=== PATIENT | male | born 1940 | race Caucasian/White ===

== ENCOUNTER 2017-03-11 14:01 | Inpatient (IN) | payer MEDICARE, BC ==
[~2017-03-11] VITALS: Ht 177.8 cm; Wt 87.5 kg
[2017-03-11] VITALS (10 sets, daily range): BP systolic 92–140; BP diastolic 56–78; PULSE 73–104; RESP 14–25; TEMP 97.2–98.2; O2SAT 93–100
[~2017-03-11 14:01] MED LIST: ASPI325T PO; IOHEXOL 350 MG/ML 100 ML BTL (for Cath Lab) OTHER ONE; LISI10TA PO; LORTA5 PO; MUCI600T PO; OCUVTAB PO; TAB-TAB PO; ULTR50TA PO; VYTO10TA35 PO
[2017-03-11] MEDS ORDERED: NITROGLYCERIN 0.4 MG SL 25 TABS/BTL SL STA (14:12)
[2017-03-11] MEDS ORDERED: HEPARIN SODIUM - IV 10,000 UNITS/10 ML VIAL IV STA (14:12)
--- NOTE | 2017-03-11 14:24 | PD ---
HPI Chief Complaint: STEMI Alert Time Seen by Provider: 14:12 Travel History International Travel<30 days: No Contact w/Intl Traveler<30days: No Traveled to known affect area: No History of Present Illness HPI 76yo M with PMH of CAD s/p cardiac cath in 1995, HTN presents to the ED with STEMI alert with chest pain since 9am today. States it feels like someone is sitting on it, nonradiating, left sided. Associated with diaphoresis, sob, nausea, NBNB vomiting. Denies any focal weakness or numbness, abdominal pain. Pt was given by sublingual nitro x2, aspirin x2. Pt's territory account representative is Dr. Lynn. [facility] Past Medical History Arthritis: Yes Anxiety: No Depression: No Cancer: Yes Cardiovascular Problems: Yes High Cholesterol: Yes Chest Pain: Yes Diabetes: Yes Endocrine: Yes Genitourinary: No Hepatitis: No Hiatal Hernia: No Immune Disorder: No Musculoskeletal: Yes Neurologic: No Psychiatric: No Reproductive: No Respiratory: Yes (L lower lobectomy) Thyroid Disease: No Past Surgical History AICD: No Cardiac Surgery: Yes (angioplasty 1995) Endocrine Surgery: Yes (tonsillectomy/adenoidectomy) Joint Replacement: No Oral Surgery: Yes (SEPTOPLASTY) Pacemaker: No Thoracic Surgery: Yes (RIGHT BREAST MASTECTOMY) Social History Tobacco Use: No Substance Use: No Allergies-Medications (Allergen,Severity, Reaction): Coded Allergies: No Known Allergies (Unverified , 03/11/17) Reported Meds & Prescriptions Reported Meds & Active Scripts Active Reported Aspirin 81 Mg Chew 324 Mg CHEW DAILY Hydrochlorothiazide 12.5 Mg Cap 12.5 Mg PO BID Amlodipine (Amlodipine Besylate) 2.5 Mg Tab 2.5 Mg PO DAILY Prilosec (Omeprazole Magnesium) 2.5 Mg Pow Simvastatin 40 Mg Tab 40 Mg PO HS Zetia (Ezetimibe) 10 Mg Tab 10 Mg PO DAILY Review of Systems Except as stated in HPI: all other systems reviewed are Neg Physical Exam Narrative GENERAL: 76yo M in distress. SKIN: Diaphoretic. HEAD: Atraumatic. Normocephalic. EYES: Pupils equal and round. No scleral icterus. No injection or drainage. ENT: No nasal bleeding or discharge. Mucous membranes pink and moist. NECK: Trachea midline. No JVD. CARDIOVASCULAR: Regular rate and rhythm. No murmur appreciated. RESPIRATORY: No accessory muscle use. Clear to auscultation. Breath sounds equal bilaterally. GASTROINTESTINAL: Abdomen soft, non-tender, nondistended. MUSCULOSKELETAL: No obvious deformities. No clubbing. No cyanosis. No edema. NEUROLOGICAL: Awake and alert. No obvious cranial nerve deficits. Motor grossly within normal limits. Normal speech. PSYCHIATRIC: Appropriate mood and affect; insight and judgment normal. Data Data Last Documented VS Vital Signs Date Time Temp Pulse Resp B/P Pulse Ox O2 Delivery O2 Flow Rate FiO2 03/11/17 16:15 73 03/11/17 16:07 97.2 14 92/56 94 03/11/17 14:38 Nasal Cannula 2 Orders Troponin I (03/11/17 14:12) Ckmb (Isoenzyme) Profile (03/11/17 14:12) Complete Blood Count With Diff (03/11/17 14:12) I-Stat Profile (03/11/17 14:12) I-Stat Creatinine (03/11/17 14:12) Calcium (03/11/17 14:12) Magnesium (Mg) (03/11/17 14:12) Prothrombin Time / Inr (Pt) (03/11/17 14:12) Act Partial Throm Time (Ptt) (03/11/17 14:12) Chest, Single Ap (03/11/17 14:12) Nitroglycerin Sl (Nitrostat Sl) (03/11/17 14:12) Heparin Inj (Heparin Inj) (03/11/17 14:12) Morphine Inj (Morphine Inj) (03/11/17 14:30) Potassium Chlor 20 Meq Premix (Kcl 20 Me (03/11/17 14:30) Heparin-Ns/Pf Inj (Heparin-Ns/Pf Inj) (03/11/17 14:39) Cardiac Catheterization (03/11/17 ) Bivalirudin Inj (Angiomax Inj) (03/11/17 15:03) Sodium Chlor 0.9% 250 Ml Inj (Ns 250 Ml (03/11/17 15:04) CKMB (03/11/17 14:04) CKMB% (03/11/17 14:04) Dopamine Inj Premix (Dopamine Inj Premix (03/11/17 15:12) Fentanyl Inj (Fentanyl Inj) (03/11/17 15:40) Ticagrelor (Brilinta) (03/11/17 15:43) Ondansetron Inj (Zofran Inj) (03/11/17 15:50) Activity Bed Rest (03/11/17 16:17) Diet Heart Healthy (03/11/17 Dinner) Vital Signs (Adult) SRUTHI.Q1H (03/11/17 16:17) Electrocardiogram (03/12/17 06:00) Complete Blood Count With Diff (03/12/17 04:00) Basic Metabolic Panel (Bmp) (03/12/17 04:00) Consult Hospitalist (03/11/17 ) Sodium Chlor 0.9% 1000 Ml Inj (Ns 1000 M (03/11/17 16:17) Acetaminophen (Tylenol) (03/11/17 16:30) Aspirin Chew (Aspirin Chew) (03/12/17 09:00) Ticagrelor (Brilinta) (03/11/17 16:30) Ticagrelor (Brilinta) (03/12/17 09:00) Sodium Chloride 0.9... W/Bivalirudin Inj (03/11/17 16:17) Lipid Profile (03/12/17 04:00) Window Glazier / Telemetry SRUTHI.Q8H (03/11/17 16:17) Atropine Inj (Atropine Inj) (03/11/17 16:30) Ondansetron Inj (Zofran Inj) (03/11/17 16:30) Metoprolol Tartrate (Lopressor) (03/11/17 21:00) Atorvastatin (Lipitor) (03/11/17 21:00) Window Glazier / Telemetry SRUTHI.Q8H (03/11/17 16:17) Labs Laboratory Tests Test 03/11/17 14:04 White Blood Count 10.1 TH/MM3 Red Blood Count 5.38 MIL/MM3 Hemoglobin 15.3 GM/DL Bedside Hemoglobin 14.6 G/DL Hematocrit 44.3 % Bedside Hematocrit 43.0 % Mean Corpuscular Volume 82.4 FL Mean Corpuscular Hemoglobin 28.4 PG Mean Corpuscular Hemoglobin 34.5 % Concent Red Cell Distribution Width 14.0 % Platelet Count 223 TH/MM3 Mean Platelet Volume 9.0 FL Neutrophils (%) (Auto) 71.1 % Lymphocytes (%) (Auto) 18.2 % Monocytes (%) (Auto) 9.3 % Eosinophils (%) (Auto) 0.7 % Basophils (%) (Auto) 0.7 % Neutrophils # (Auto) 7.2 TH/MM3 Lymphocytes # (Auto) 1.8 TH/MM3 Monocytes # (Auto) 0.9 TH/MM3 Eosinophils # (Auto) 0.1 TH/MM3 Basophils # (Auto) 0.1 TH/MM3 CBC Comment DIFF FINAL Differential Comment Prothrombin Time 10.5 SEC Prothromb Time International 1.0 RATIO Ratio Activated Partial 23.2 SEC Thromboplast Time Bedside Sodium 143 MMOL/L Bedside Potassium 3.2 MMOL/L Bedside Chloride 110 MMOL/L Bedside Blood Urea Nitrogen 24 MG/DL Bedside Creatinine 1.2 MG/DL Bedside Glucose 135 MG/DL Calcium Level 9.2 MG/DL Magnesium Level 1.9 MG/DL Total Creatine Kinase 128 U/L Creatine Kinase MB 3.2 NG/ML Troponin I 0.06 NG/ML MDM Medical Decision Making Medical Screen Exam Complete: Yes Emergency Medical Condition: Yes Interpretation(s) EKmm ST segment elevation in V2, V3. 2mm ST elevation in V4. ST depression in II, III, aVF. Differential Diagnosis STEMI Narrative Course 76yo M with typical chest pain here as STEMI alert. Pt with pressure like chest pain and diaphoresis. EKG showed marked anterior ST elevated with inferior reciprocal changes. I discussed with Dr. Heller who is account contact associate for STEMI and he states he is on his way and cardiac clinical lab assistant called to come in emergently. Pt given heparin 5000 IV. Pt given another sublingual nitro but states chest pain is getting worse. Morphine 2mg IV ordered. I-stat showed K: 3.2, 20mEq KCl IV ordered. Creatinine 1.2. H/H 14.6/43. I accompanied pt to the clinical lab assistant on electrical line worker and gave physician to physician sign out to Dr. Heller in the clinical lab assistant. Critical Care Narrative Aggregate critical care time was 50 minutes. Time to perform other separately billable procedures was not included in the critical care time. My time did not include minutes spent treating any other patients simultaneously or on activities that did not directly contribute to the patient's treatment. The services I provided to this patient were to treat and/or prevent clinically significant deterioration that could result in: cardiovascular collapse or . I provided critical care services requiring my management, as noted below: Chart data review, documentation time, medication orders and management, vital sign assessments/reviewing monitor data, ordering and reviewing lab tests, ordering and interpreting/reviewing x-rays and diagnostic studies, care of the patient and discussion of the patient with the admitting physicians. Diagnosis Primary Impression: STEMI (ST elevation myocardial infarction) Qualified Code: I21.3 - ST elevation myocardial infarction (STEMI), unspecified artery Admitting Information Admitting Physician Requests: Admit Bee Thomas DO Mar 11, 2017 14:24
--- NOTE | 2017-03-11 14:27 | RADRPT ---
EXAM DATE/TIME: 03/11/2017 14:06 [place] COMPARISON: CHEST SINGLE AP, November 02, 2013, 13:31. INDICATIONS : Stemi alert MEDICAL HISTORY : None. SURGICAL HISTORY : None. ENCOUNTER: Initial ACUITY: 1 day PAIN SCORE: 10/10 LOCATION: Bilateral chest FINDINGS: The heart size is normal. There is linear scarring or atelectasis at the right base. The lungs are ot herwise clear. No effusion is seen. CONCLUSION: Mild linear scarring or atelectasis at the right base. Aris Parks MD on March 11, 2017 at 14:24 Board Certified Radiologist. This report was verified electronically.
[2017-03-11] MEDS ORDERED: HYDR12.57 PO (14:28)
[2017-03-11] MEDS ORDERED: PRIL2.5P (14:28)
[2017-03-11] MEDS ORDERED: ZETI10TA5 PO (14:28)
[2017-03-11] MEDS ORDERED: ASPI81CH CHEW (14:28)
[2017-03-11] MEDS ORDERED: AMLO2.5T PO (14:28)
[2017-03-11] MEDS ORDERED: SIMV40TA PO (14:28)
[2017-03-11] MEDS ORDERED: MORPHINE SULFATE 4 MG/ML INJ IV PUSH ONE (14:30)
[2017-03-11] MEDS ORDERED: POTASSIUM CHLOR 20 MEQ PREMIX 100 ML IV ONE (14:30)
[2017-03-11 14:39] LABS: AUTOMATED NEUTROPHIL # 7.2 TH/MM3 (1.8-7.7); BASOPHIL # 0.1 TH/MM3 (0-0.2); BASOPHIL % 0.7 % (0.0-2.0); EOSINOPHIL # 0.1 TH/MM3 (0-0.4); EOSINOPHIL % 0.7 % (0.0-4.0); HEMATOCRIT 44.3 % (39.0-51.0); HEMO FLAGS DIFF FINAL; I-STAT POTASSIUM 3.2 MMOL/L (3.5-4.9); I-STAT SODIUM 143 MMOL/L (138-146); LYMPH % 18.2 % (9.0-44.0); LYMPHOCYTE # 1.8 TH/MM3 (1.0-4.8); MEAN CELL VOLUME 82.4 FL (80.0-100.0); MEAN CORPUSCULAR HEMOGLOBIN 28.4 PG (27.0-34.0); MEAN CORPUSCULAR HGB CONC 34.5 % (32.0-36.0); MONO % 9.3 % (0.0-8.0); NEUT % 71.1 % (16.0-70.0); PLATELET COUNT 223 TH/MM3 (150-450); RED BLOOD COUNT 5.38 MIL/MM3 (4.50-5.90); WHITE BLOOD COUNT 10.1 TH/MM3 (4.0-11.0)
[2017-03-11] MEDS ORDERED: HEPARIN-NS/PF INJ 500 ML ONE (14:39)
[2017-03-11 14:48] LABS: APTT (PATIENT) 23.2 SEC (24.3-30.1); PROTHROMBIN TIME - PATIENT 10.5 SEC (9.8-11.6)
[2017-03-11] MEDS ORDERED: BIVALIRUDIN 250 MG VIAL ONE (15:03)
[2017-03-11] MEDS ORDERED: SODIUM CHLOR 0.9% 250 ML INJ 250 ML ONE (15:04)
[2017-03-11 15:09] LABS: MAGNESIUM 1.9 MG/DL (1.5-2.5)
[2017-03-11 15:12] LABS: CREATINE KINASE 128 U/L (39-308)
[2017-03-11] MEDS ORDERED: DOPamine INJ PREMIX 500 ML ONE (15:12)
[2017-03-11 15:24] LABS: CKMB 3.2 NG/ML (0.5-3.6)
[2017-03-11] MEDS ORDERED: TICAGRELOR 90 MG TAB PO ONE ×2 (15:43→16:30)
[2017-03-11] MEDS ORDERED: ONDANSETRON HCL 4 MG/2 ML VIAL ONE (15:50)
--- NOTE | 2017-03-11 16:03 | CATHPROC ---
[employer] HIS Report Study Information Study Number Admission Scheduled Start Study Start [id number] Mar 11 2017 2:01PM 03/11/2017 Mar 11 2017 2:42PM [facility] Cardiac Catheterization Admit Source Facility Department Emergency department [facility] - Script Coordinator Physician and Clinical Staff Initial Cuco Rodriguez Finishing Wire Sawyer Christopher Nolen,ASH Finishing Wire Sawyer Helga Lorenzana RN Other cathlab, cathlab Recorder Estrada Underwood RCIS(BS) Scrub Evangelist Abebe RT(R) Procedures Performed Procedure Location (Site) Vessel Name Angiogram LV LV Ventricle Coronary Angiograms RCA Right Coronary Drug Eluting Inflatio LAD Prox Left Coronary PTCA LAD Prox Left Coronary Wire insertion Fem Art (right) Femoral Art Equipment Time Rn Clinical Review Description Size Mfg Part Number Used/Scraped COPILOT VALVE, BLEEDBACK [id number] 14:44 [employer] Used CONTROL *[id number] PERCLOSE, PRO GLIDE CLOSER 15:34 [employer] FR 6 15744 *[id number] Used DEVICE TRANSDUCER, TRUWAVE [id number] 14:44 ROMO [employer] * Used W/STOCKCOCK *[id number] INTRODUCER SET, [id number] 15:03 [employer]. FR 5 Used MICROPUNCTURE *[id number] [id number] *[id number] PIGTAIL ANG. 145 INFINITI [id number] CATHETER *[id number] 14:44 MEDLINE IND[employer]RIES PACK, CCL CUSTOM * Used *[id number] 14:44 MEDLINE PACER PEN, SKIN DUAL W/ RULER * Used *[id number] 15:07 MEDTRONIC BALLOON, 2.5 X 12MM EUPHORA 12MM Used *[id number] BALLOON, 3.25 X 12MM NC [id number] 15:25 MEDTRONIC 12MM Used EUPHORA *[id number] BALLOON, 3.5 X 12MM NC [id number] 15:29 MEDTRONIC 12MM Used EUPHORA *[id number] STENT, 3.0 18 RESOLUTE [id number] 15:15 MEDTRONIC 3.0 18 Used INTEGRITY RX *[id number] 14:49 MEDTRONIC/AVE EBU 3.5 Z2 GUIDE CATHETER FR 6 Used *[id number] 14:44 [employer] 30 MANUEL INDEFLATOR Used *[id number] 14:44 [employer] MEDICAL SHEATH, FR6.5 PRELUDE 11CM FR 6.5 038ACT Used *[id number] 14:44 [employer] MEDICAL WIRE, 3MMJ .035 180CM 180CM Used *[id number] 14:44 NAMIC MANIFOLD, 4 PORT * Used *[id number] 14:44 [employer]COMED OMNIPAQUE, 350 MG, 100ML 100ML [id number] Used 15:39 NYCOMED OMNIPAQUE, 350 MG, 50ML 50ML [id number] Used [id number] 14:44 REA MEDICAL BLANKET,WARM AIR CCL * Used *[id number] WIRE, RUNTHROUGH NS FLOPPY 25-1011 15:06 [employer] MEDICAL 180CM Used .014 180CM *[id number] Equipment Model, Serial, Lot Number and Expiration Data Description Model Number Serial Number Lot Number Expiration Date STENT, 3.0 18 RESOLUTE [id number] 12-08-2018 INTEGRITY RX History: Allergies Allergy Reaction No Known Allergies History: Risk Factors Family History of Hypertension Dyslipidemia Previous TX Previous Heart Failure Premature CAD Yes Yes No No No Prior Valve Prior PCI Prior PCIDate Prior CABG Surgery No Yes 09/18/1998 No Cerebrovascular Peripheral Artery Chronic Lung On Dialysis Diabetes Diabetes Therapy Disease Disease Disease No No No No Yes Oral History: Symptoms/Diagnosis Selection Items Chest pain History: Stress Tests Stress or Imaging Studies Performed No History: Other Disease Selection Items CAD HTN History: TX/CV Data Previous Cath Date 09/18/1998 History: Other Current Smoker Method Quit Packs a Day Years Used Pack Years No Cigarettes 35 Years Ago 1 25 25 Labs Hgb (g/dl) Hct (%) 11.60-17.00 35.00-51.00 14.6 43 Glucose (mg/dl) BUN (mg/dl) Creatinine (mg/dl) BUN:Creatinine (1:x) 74.00-106.00 7.00-18.00 0.50-1.30 10.00-20.00 135 24 1.2 20 Na (meq/l) K (meq/l) Cl (meq/l) 136.00-145.00 3.50-5.10 98.00-107.00 143 3.2 110 CPK-MB (ng/ML) 0.50-3.60 Not Drawn Medication Medication Total Dose (Bolus/Oral) Medication Total Dosage/Unit 1% XYLOCAINE 20 mL ANGIOMAX BOLUS 14 mL BRILLINTA 180 mg FENTANYL 50 mcg ZOFRAN 4 mg Medications (Bolus/Oral) Medication Time Given Dosage/Unit Administered By Reason 1% XYLOCAINE 03/11/2017 2:57:40 PM 20 mL Heller-Taylor, Cuco 20 mL 1% XYLOCAINE given in lab by Gretchen Cuco in Right Groin via Subcutaneous. ANGIOMAX BOLUS 03/11/2017 3:05:20 PM 14 mL Christopher Nolen 14 mL ANGIOMAX BOLUS given in lab by Christopher Nolen RN in Left Antecubital via Peripheral IV. FENTANYL 03/11/2017 3:40:40 PM 50 mcg Christopher Nolen 50 mcg FENTANYL given in lab by Christopher Nolen RN in Left Antecubital via Peripheral IV. BRILLINTA 03/11/2017 3:47:36 PM 180 mg Salomón, Helga 180 mg BRILLINTA given in lab by Helga Lorenzana RN in Per mouth via Oral. ZOFRAN 03/11/2017 3:52:02 PM 4 mg Salomón, Helga 4 mg ZOFRAN given in lab by Helga Lorenzana RN in Left Antecubital via Central IV. Medication (Drip) Medication Time Given Dosage/Unit Concentration/Unit Diluent (ml) Solution ANGIOMAX DRIP 03/11/2017 3:07:52 PM 1.75 mg/kg/hr 250 mg 50 NaCl .9 1.75 mg/kg/hr ANGIOMAX DRIP given in lab by Christopher Nolen RN in Left Antecubital via Peripheral IV. Pump/Drip Flow = 29.4 ml/hr using NaCl .9 with a concentration of 250 mg in 50 ml. POTASSIUM DRIP 03/11/2017 2:56:26 PM 10 meq/hr 10 meq 100 D5W .9 NaCl Patient arrived on 10 meq/hr POTASSIUM DRIP in Left Antecubital via Peripheral IV. Pump/Drip Flow = 1 00 ml/hr using D5W .9 NaCl with a concentration of 10 meq in 100 ml. Initial Case Assessment Cardiovascular HR Rhythm NIBP Chest Pain 86 stemi 112/64 9 Edema Present Skin color Skin None Normal Warm Dry Circulatory - Right Pulses Dorsalis Pedis Femoral 3 2 Scale (0,1,2,3,4,d) Circulatory - Left Pulses Dorsalis Pedis Femoral 3 2 Scale (0,1,2,3,4,d) Neurological State Oriented to time-place- Alert Moves all extremities person Respiration - General Respiration Rate SpO2 (%) (B/min) 15 100 Chronological Log Time Study Chronological Log 14:40:18 Emergency Room notified that Script Coordinator is ready. 14:45:05 Patient arrived via Bed. 14:45:10 Patient Name, D.O.B, / Armband Verified By R.N. 14:55:30 Bilateral groins prepped with 2% chlorhexidine, and with a 3 min. waiting time. 14:56:06 Consent signed by the physician and the patient and verified by the Script Coordinator staff. 14:56:08 Pre-op and post- op instructions given; patient acknowledges understanding of instructions. 14:56:09 Verbal Stimulation=2 Physical Stimulation=2 Airway=2 Respiration=1 TOTAL=8. (0=absent, 1=li mited, 2=present) 14:56:14 Patient has been NPO for More than 6Hrs. 14:56:14 Skin Breakdown- none per patient 14:56:21 Patient Warmer Placed on the Table. 14:56:22 Jessica Prominences Protected Vitals capture started with the following parameters, Patient=Adult, Interval=5 min, Initial Pr jqtdxh=083 mmHg, 14:56:23 Deflation Rate=5 mmHg 14:56:25 A # 20 IV was noted in the Hand (left). Grade = 0 14:56:26 A # 20 IV was noted in the Antecubital (left). Grade = 0 Patient arrived on 10 meq/hr POTASSIUM DRIP in Left Antecubital via Peripheral IV. Pump/Drip Fl ow = 100 ml/hr using 14:56:26 D5W .9 NaCl with a concentration of 10 meq in 100 ml. 14:56:27 History and physical on the chart or being dictated. 14:56:59 HR=91 bpm, VSOC=422/64 mmhg, SpO2=99.0 %, Resp=15 B/min, Pain=0, Aimee=10, Fields=2 14:57:40 20 mL 1% XYLOCAINE given in lab by Cuco Godinez in Right Groin via Subcutaneous. 14:59:04 Reference ECG taken Assessment: Initial Case, HR=86 BPM, Rhythm=stemi, UMIG=882/64 mmhg, Chest Pain=9, Edema=None, Color=Normal, Skin = Warm, Dry Right Pulses: Surya Ped=3, Femoral=2 14:59:06 Left Pulses: Surya Ped=3, Femoral=2 Neurological: State=Alert, Ox3, PAGE Respiration: Resp=15 B/min, RfU5=843 % 14:59:50 Pressure channel 1 zeroed. 15:01:58 HR=77 bpm, TTEF=246/67 mmhg, DaW8=437.0 %, Resp=16 B/min, Pain=0, Aimee=10, Fields=2 15:02:17 Access site was Right Femoral Artery. 15:02:23 A INTRODUCER SET, MICROPUNCTURE FR 5 was advanced into the Fem Art (right) using the Percut aneous technique. A SHEATH, FR6.5 PRELUDE 11CM FR 6.5 was exchanged in the Fem Art (right). This was necessary in order to 15:02:40 accomodate a larger catheter. A JR 4.0 INFINITI CATHETER FR 6 was advanced over a wire. OMNIPAQUE, 350 MG, 100ML 100ML was us ed for 15:03:34 injections. Recorded Pressure: Ao, HR=77, Condition=Condition 1 15:03:57 (Aorta) Ao 106/58/80 15:04:37 The RCA was injected and visualized at various angles. OMNIPAQUE, 350 MG, 100ML 100ML used . 15:05:02 Catheter was removed A EBU 3.5 Z2 GUIDE CATHETER FR 6 was advanced over a wire. OMNIPAQUE, 350 MG, 100ML 100ML was u sed for 15:05:04 injections. 15:05:20 14 mL ANGIOMAX BOLUS given in lab by Christopher Nolen RN in Left Antecubital via Peripheral I V. 15:06:59 HR=72 bpm, DLIC=010/65 mmhg, KiX5=807.0 %, Resp=19 B/min, Pain=9, Aimee=10, Fields=2 15:07:00 HR=72 bpm, YATU=079/65 mmhg, GzK5=110.0 %, Resp=19 B/min, Pain=9, Aimee=10, Fields=2 15:07:02 A WIRE, RUNTHROUGH NS FLOPPY .014 180CM 180CM was inserted via Fem Art (right). 1.75 mg/kg/hr ANGIOMAX DRIP given in lab by Christopher Nolen RN in Left Antecubital via Periphera l IV. Pump/Drip Flow 15:07:52 = 29.4 ml/hr using NaCl .9 with a concentration of 250 mg in 50 ml. 15:09:48 Interventional wire has crossed the lesion A BALLOON, 2.5 X 12MM EUPHORA 12MM was inserted over WIRE, RUNTHROUGH NS FLOPPY .014 180CM 180C M via 15:09:54 the LAD Prox. A BALLOON, 2.5 X 12MM EUPHORA 12MM over a WIRE, RUNTHROUGH NS FLOPPY .014 180CM 180CM in the LA D 15:10:48 Prox was inflated using a 30 MANUEL INDEFLATOR at 8 manuel for 7 sec. A BALLOON, 2.5 X 12MM EUPHORA 12MM over a WIRE, RUNTHROUGH NS FLOPPY .014 180CM 180CM in the LA D 15:11:27 Prox was inflated using a 30 MANUEL INDEFLATOR at 8 manuel for 7 sec. 15:11:39 Balloon Removed. 15:11:58 HR=71 bpm, NIBP=95/57 mmhg, UzC5=358.0 %, Resp=15 B/min, Pain=9, Aimee=10, Fields=2 A STENT, 3.0 18 RESOLUTE INTEGRITY RX 3.0 18 was advanced through a EBU 3.5 Z2 GUIDE CATHETER F R 6 over a 15:13:37 WIRE, RUNTHROUGH NS FLOPPY .014 180CM 180CM. A STENT, 3.0 18 RESOLUTE INTEGRITY RX 3.0 18 was deployed using a 30 MANUEL INDEFLATOR at 14 atmos pheres for 15:16:49 14 seconds in the LAD Prox. 15:16:57 HR=78 bpm, LHBS=884/59 mmhg, EbR4=278.0 %, Resp=14 B/min, Pain=5, Aimee=10, Fields=2 15:19:20 Delivery device removed Vitals capture started with the following parameters, Patient=Adult, Interval=5 min, Initial Pr vceyhf=654 mmHg, 15:19:26 Deflation Rate=5 mmHg 15:19:59 HR=77 bpm, NIBP=91/61 mmhg, KhR5=274.0 %, Resp=19 B/min, Pain=5, Aimee=10, Fields=2 Vitals capture started with the following parameters, Patient=Adult, Interval=5 min, Initial Pr zyvbos=078 mmHg, 15:22:54 Deflation Rate=5 mmHg Recorded Pressure: Ao, HR=73, Condition=Condition 1 15:23:15 (Aorta) Ao 82/54/68 15:23:24 HR=74 bpm, NIBP=90/60 mmhg, XzW2=627.0 %, Resp=20 B/min, Pain=0, Aimee=10, Fields=2 A BALLOON, 3.25 X 12MM NC EUPHORA 12MM was inserted over WIRE, RUNTHROUGH NS FLOPPY .014 180CM 15:25:52 180CM via the LAD Prox. A BALLOON, 3.25 X 12MM NC EUPHORA 12MM over a WIRE, RUNTHROUGH NS FLOPPY .014 180CM 180CM in th e LAD 15:26:17 Prox was inflated using a 30 MANUEL INDEFLATOR at 20 manuel for 20 sec. 15:28:24 Balloon Removed. 15:28:25 HR=72 bpm, NIBP=97/58 mmhg, JqN0=683.0 %, Resp=15 B/min, Pain=1, Aimee=10, Fields=2 A BALLOON, 3.5 X 12MM NC EUPHORA 12MM was inserted over WIRE, RUNTHROUGH NS FLOPPY .014 180CM 1 80CM 15:29:44 via the LAD Prox. A BALLOON, 3.5 X 12MM NC EUPHORA 12MM over a WIRE, RUNTHROUGH NS FLOPPY .014 180CM 180CM in the LAD 15:31:09 Prox was inflated using a 30 MANUEL INDEFLATOR at 20 manuel for 17 sec. 15:33:09 Balloon Removed. 15:33:25 Wire removed 15:33:26 HR=75 bpm, NIBP=95/63 mmhg, ZzW1=479.0 %, Resp=19 B/min, Pain=1, Aimee=10, Fields=2 15:34:04 Catheter was removed 15:34:36 An injection in the Fem Art (right) was made through the SHEATH, FR6.5 PRELUDE 11CM FR 6.5. A PIGTAIL ANG. 145 INFINITI CATHETER FR 6 was advanced over a wire. OMNIPAQUE, 350 MG, 100ML 10 0ML was 15:35:30 used for injections. Recorded Pressure: LV, HR=77, Condition=Condition 1 15:37:27 (Left Ventricle) LV 88/20/28 15:38:27 HR=77 bpm, NIBP=88/56 mmhg, PfV3=575.0 %, Resp=16 B/min, Pain=1, Aimee=10, Fields=2 15:38:49 The LV was injected at 15 cc/sec for a total of 30. OMNIPAQUE, 350 MG, 50ML 50ML used. Recorded Pressure: LV, Ao, HR=77, Condition=Condition 1 15:39:14 (Left Ventricle) LV 82/25/34, (Aorta) Ao 81/50/64 15:39:45 Catheter was removed 15:40:40 50 mcg FENTANYL given in lab by Christopher Nolen RN in Left Antecubital via Peripheral IV. 15:41:28 PERCLOSE, PRO GLIDE CLOSER DEVICE FR 6 placement in the Fem Art (right) 15:43:03 Case End 15:43:09 No case complications noted. 15:43:10 Cine recording checked. 15:43:11 Sterile dressing applied to site 15:43:13 Implantable Device card placed in patient's chart. 15:43:14 Bedside Report will be given. 15:43:24 HR=79 bpm, NIBP=96/61 mmhg, JaE3=511.0 %, Resp=16 B/min, Pain=1, Aimee=10, Fields=2 15:47:36 180 mg BRILLINTA given in lab by Helga Lorenzana, ASH in Per mouth via Oral. 15:48:02 Patient moved to stretcher 15:50:20 Patient vomitting 15:52:02 4 mg ZOFRAN given in lab by Helga Lorenzana, ASH in Left Antecubital via Central IV. 15:54:28 Patient taken to [facility] End Study - Contrast Media Used In Study Contrast Total Opened (mL) Total Used (mL) Total Wasted (mL) Omnipaque 155 155 0 End Study - Maximum Contrast Load Max Contrast Load (mL) 350.0 End Study - Radiation Exposure Fluoro Time (minutes) 12.2 End Study - Patient Disposition Complications Transferred To Interventional Outcome No Telemetry Bed successful
[2017-03-11] MEDS ORDERED: SODIUM CHLOR 0.9% 1000 ML INJ 1,000 ML IV SCH (16:17)
[2017-03-11] MEDS ORDERED: BIVALIRUDIN INJ 250 MG in SODIUM CHLORIDE 0.9% INJ 50 ML IV SCH (16:17)
[2017-03-11] MEDS ORDERED: ATROPINE SULFATE 1 MG/ML VIAL IV PRN (16:30)
[2017-03-11] MEDS ORDERED: ONDANSETRON HCL 4 MG/2 ML VIAL IV PRN (16:30)
[2017-03-11] MEDS ORDERED: ACETAMINOPHEN 325 MG TAB PO PRN (16:30)
--- NOTE | 2017-03-11 16:38 | MB ---
cc: JOY DOYLE DATE OF CONSULTATION: 03/11/2017. HISTORY OF PRESENT ILLNESS: 76-year-old male with past medical history of hypertension, coronary artery disease, hyperlipidemia, chronic kidney disease who presented to the emergency department with oppressive chest discomfort of acute onset. EKG done reflected an anterior S-T segment elevation myocardial infarction and a STEMI alert was called. He was started on heparin and aspirin. Cardiology has been consulted for further management and evaluation. The patient describes oppressive chest discomfort radiating to the left arm not relieved by nitroglycerin. REVIEW OF SYSTEMS: Negative except for that mentioned in the history of present illness. PAST MEDICAL HISTORY: 1. Coronary artery disease status post POBA to the left circumflex. 2. Hypertension. 3. Hyperlipidemia 4. CKD PAST SURGICAL HISTORY: POBA to the circumflex artery. ALLERGIES: NO KNOWN DRUG ALLERGIES. FAMILY HISTORY: Noncontributory. SOCIAL HISTORY: Denies alcohol, illicit drug use or smoking. PHYSICAL EXAMINATION: VITAL SIGNS: Temperature 97, respiratory rate 20, pulse 80, blood pressure 110/ 81. Gen: AAOx3, in pain HEENT: No JVD, no carotid bruits HEART: Tachycardic, no murmurs, no gallops or rubs LUNGS: CTA x2, no wheezing, no rales or rhonchi Abdomen: + BS, soft, nontender, nondistended Extremeties: No edema or cyanosis, pulses throughout LABORATORY WORK: Hematocrit of 43, hemoglobin 14. Sodium 143, potassium 3.2, BUN 24, creatinine 1.2. EKG: Sinus rhythm with anterior S-T segment elevation suggestive of myocardial injury. ASSESSMENT AND PLAN: 76-year-old male presenting to the emergency department with an S-T segment elevation myocardial infarction. He continues with chest pain, despite nitro and morphine. Hemodynamically stable. He will need to be taken to the engineer [facility] laboratory for emergent PCI per ACC/AHA guidelines. He has a history of chronic kidney disease, the risks and benefits of left heart catheterization and percutaneous coronary intervention including but not limited to bleeding, infection, neurovascular trauma, acute kidney injury, stroke, emergent bypass surgery and have been explained to the patient. The patient understands the risks and is willing to proceed. Recommendations: 1. Emergent LHC for primary percutaneous coronary intervention. Further therapy to be determined. MD ELEONORA Ovalles/JOHN /4:07 PM /4:31 PM [email or web address]
[2017-03-11] MEDS ORDERED: PILL SPLITTER OTHER PRN (16:45)
--- NOTE | 2017-03-11 17:27 | MA ---
cc: CUCO DOYLE DATE 03/11/17 DATE OF 1940 PROCEDURE PERFORMED 1. Left heart catheterization. 2. Selective right and left coronary angiography. 3. Left ventriculogram. 4. Right selective common femoral artery angiography. 5. Successful PCI to proximal LAD. INDICATION STEMI. DESCRIPTION Consent signed. The patient was taken emergently to the cardiac label fuser tender. The right groin was prepped and draped in sterile fashion using 1% lidocaine for local anesthesia. A micropuncture kit, a 6-German sheath was inserted into the right common femoral artery. Right common femoral artery angiography was performed to confirm position of the sheath. Then selective right and left coronary angiography was performed with a JR-4 and an EBU 3.5 guide. Angiography was taken in multiple views. We identified the culprit of the STEMI as the proximal LAD. Angiomax was given for anticoagulation. Then, a run-through wire was used to cross the lesion and it was anchored distally in the LAD. This was followed by predilation with a 2.5 12 balloon in the proximal area of the LAD with successful reperfusion of the vessel. Then, we inserted and deployed a 3-0 18 stent. This stent was postdilated with a noncompliant 3.25 and a noncompliant 3.5 12 balloon to high atmospheres. Final angiographic views revealed good stent position and expansion with NABEEL III flow. The patient tolerated the procedure well without complications. Estimated blood loss less than 30 cc. Total contrast used 150 cc. An angled pigtail was used to cross into the ventricle. This was followed by pressure recordings and ventriculogram and pullback. The right groin access site was closed with a Perclose. The patient was loaded with Brilinta after the procedure with results. Left ventricular pressure was 82/25 with a LVEDP of 34. The aortic pressure was 81/50 with a mean of 64. Left ventriculogram revealed mild hypokinesis of the anterior wall with an estimated ejection fraction of 50%. There was no gradient upon pullback from the left ventricle to aorta. ANGIOGRAPHY 1. Right coronary artery. The right coronary artery is a nondominant vessel. This vessel is small. It has minimal luminal irregularities and patent. 2. Left main is at least a ___ vessel. It is patent with NABEEL III flow and nonobstructive coronary artery disease. The LAD is 100% occluded in its proximal and mid segment. 3. Left circumflex has minimal irregularities, is ____ in the proximal area. There is a 10% lesion proximally. The AV groove segment of the circumflex is patent, is giving a PDA that is also patent. The circumflex has a main second OM which is a big vessel that is also patent with NABEEL III flow, some minimal irregularities, however, no significant obstructions. CONCLUSION 1. Successful PCI/LEW to proximal LAD in the setting of STEMI. 2. Elevated LVEDP. 3. Preserved systolic function with estimated ejection fraction of 50%. RECOMMENDATIONS The patient will be admitted to the [facility] for post cath care. He will be continued in aspirin and Brilinta. Angiomax will be continued for the next 4 hours. He will be started on beta-blockers and statins. A 2-D echo will be ordered to assess LV systolic function and any other valvulopathies. The patient has a history of adverse reaction to an MILO inhibitor, thus MILO inhibitors will be held at this time. Cuco Doyle MD LINE UP WORKER/EO /4:12 PM /4:54 PM
[2017-03-11] MEDS: ATORVASTATIN 10 MG TAB PO SCH (20:45)
[2017-03-11] MEDS: METOPROLOL TARTRATE 25 MG TAB PO SCH (20:45)
[2017-03-11] MEDS ORDERED: BENA25TA6 PO (22:26)
[2017-03-11] MEDS ORDERED: diphenhydrAMINE HCL 25 MG CAP PO PRN ×2 (23:30)
[2017-03-12] VITALS (26 sets, daily range): BP systolic 120–126; BP diastolic 64–79; PULSE 66–95; RESP 18–20; TEMP 98–101.5; O2SAT 92–94
[2017-03-12 05:04] LABS: AUTOMATED NEUTROPHIL # 9.8 TH/MM3 (1.8-7.7); BASOPHIL % 0.3 % (0.0-2.0); HEMATOCRIT 38.6 % (39.0-51.0); HEMO FLAGS DIFF FINAL; LYMPH % 8.2 % (9.0-44.0); MEAN CORPUSCULAR HEMOGLOBIN 27.9 PG (27.0-34.0); MEAN CORPUSCULAR HGB CONC 33.7 % (32.0-36.0); MONO % 12.1 % (0.0-8.0); NEUT % 79.4 % (16.0-70.0); PLATELET COUNT 190 TH/MM3 (150-450); RED BLOOD COUNT 4.65 MIL/MM3 (4.50-5.90); RED CELL DISTRIBUTION WIDTH 14.4 % (11.6-17.2); WHITE BLOOD COUNT 12.3 TH/MM3 (4.0-11.0)
[2017-03-12 05:33] LABS: HDL CHOLESTEROL 48.6 MG/DL (40.0-60.0)
[2017-03-12 05:40] LABS: BICARBONATE 22.3 MEQ/L (21.0-32.0); POTASSIUM 3.8 MEQ/L (3.5-5.1)
[2017-03-12] MEDS ORDERED: RESP: ALBUTEROL 1.25 MG/3 ML NEB (PRN) NEB (08:45)
[2017-03-12] MEDS: TICAGRELOR 90 MG TAB PO SCH ×2 (08:48→21:15)
[2017-03-12] MEDS: METOPROLOL TARTRATE 25 MG TAB PO SCH ×2 (08:48→21:15)
[2017-03-12] MEDS: ASPIRIN 81 MG CHEW TAB PO SCH (08:48)
--- NOTE | 2017-03-12 08:55 | PD.CONS ---
[facility] Request[facility] By Reason for Consult medical management Primary Care Physician Unknown Diagnoses: History of Present Illness patient is a 76 y/o male with history of hypertension, dyslipidemia, ex-smoker, who presented to ER with chest pain. he says that while he was working on his boat yesterday he started to have midsternal chest pain. the pain was localized to the midchest with no radiation. pain was moderate in intensity and lasted till he had heart catheterization yesterday. pain was associated with nausea and few episodes of emesis. he denies any sob or dizziness. he underwent cardiac catheterization , PIC and stenting yesterday. at the time of my evaluation he was resting comfortably with no distress. currently denies any chest pain but has occasional cough along with some wheezing. Review of Systems Constitutional: DENIES: Fever, Weight loss, Chills, Night Sweats Eyes: DENIES: Blurred vision, Diplopia, Vision loss, Double Vision Ears, nose, mouth, throat: DENIES: Tinnitus, Vertigo, Throat pain, Epistaxis Respiratory: COMPLAINS OF: Cough, Wheezing, DENIES: Apneas, Snoring, Hemoptysis Cardiovascular: COMPLAINS OF: Chest pain, DENIES: Palpitations, Syncope, Dyspnea on Exertion, PND, Lower Extremity Edema, Orthopnea, Claudication Gastrointestinal: DENIES: Abdominal pain, Black stools, Bloody stools, Constipation, Diarrhea, Nausea, Vomiting, Difficulty Swallowing, Anorexia Genitourinary: DENIES: Urinary frequency, Urgency, Hematuria, Dysuria Musculoskeletal: DENIES: Joint pain, Muscle aches, Stiffness, Joint Swelling Integumentary: DENIES: Rash Neurologic: DENIES: Abnormal gait, Headache, Localized weakness, Paresthesias, Seizures, Speech Problems, Tremor, Poor Balance Psychiatric: DENIES: Anxiety, Confusion, Mood changes, Depression, Hallucinations, Agitation, Suicidal Ideation, Homicidal Ideation, Delusions Past Family Social History Allergies: Coded Allergies: No Known Allergies (Unverified , 03/11/17) Past Medical History hypertension dyslipidemia Past Surgical History lung surgery breast surgery Reported Medications Aspirin 81 Mg Chew 324 Mg CHEW DAILY Hydrochlorothiazide 12.5 Mg Cap 12.5 Mg PO BID Amlodipine (Amlodipine Besylate) 2.5 Mg Tab 2.5 Mg PO DAILY Prilosec (Omeprazole Magnesium) 2.5 Mg Pow Simvastatin 40 Mg Tab 40 Mg PO HS Zetia (Ezetimibe) 10 Mg Tab 10 Mg PO DAILY Active Ordered Medications Current Medications Nitroglycerin (Nitrostat Sl) 0.4 mg NOW STAT SL Last administered on 14:23; Start 03/11/17 at 14:12; Stop 03/11/17 at 14:16; Status DC Heparin Sodium (Porcine) (Heparin Inj) 5,000 units NOW STAT IV Last administered on 03/11/17 14:23; Start 03/11/17 at 14:12; Stop 03/11/17 at 14:16 ; Status DC Morphine Sulfate 2 mg 2 mg ONCE ONCE IV PUSH Last administered on 03/11/17 14 :37; Start 03/11/17 at 14:30; Stop 03/11/17 at 14:31; Status DC Potassium Chloride 100 ml @ 50 mls/hr ONCE ONCE IV Last administered on 14:32; Start 03/11/17 at 14:30; Stop 03/11/17 at 16:29; Status DC Heparin Sodium/ Sodium Chloride (Heparin-NS/Pf Inj) 500 ml @ As Directed STK- MED ONCE .ROUTE ; Start 03/11/17 at 14:39; Stop 03/11/17 at 14:40; Status DC Bivalirudin 250 mg 250 mg STK-MED ONCE .ROUTE Last administered on 03/11/17 15 :03; Start 03/11/17 at 15:03; Stop 03/11/17 at 15:04; Status DC Sodium Chloride 250 ml @ As Directed STK-MED ONCE .ROUTE Last administered on 03/11/17 15:04; Start 03/11/17 at 15:04; Stop 03/11/17 at 15:05; Status DC Dopamine HCl/ Dextrose (DOPamine INJ PREMIX) 500 ml @ As Directed STK-MED ONCE .ROUTE ; Start 03/11/17 at 15:12; Stop 03/11/17 at 15:13; Status DC Fentanyl Citrate (fentaNYL INJ) 100 mcg STK-MED ONCE .ROUTE Last administered on 03/11/17 15:40; Start 03/11/17 at 15:40; Stop 03/11/17 at 15:41; Status DC Ticagrelor (Brilinta) 180 mg STK-MED ONCE PO Last administered on 03/11/17 15: 48; Start 03/11/17 at 15:43; Stop 03/11/17 at 15:44; Status DC Ondansetron HCl 4 mg 4 mg STK-MED ONCE .ROUTE Last administered on 03/11/17 15 :50; Start 03/11/17 at 15:50; Stop 03/11/17 at 15:51; Status DC Sodium Chloride (NS 1000 ml Inj) 1,000 ml @ 125 mls/hr Q8H IV Last administered on 03/11/17 16:17; Start 03/11/17 at 16:17; Stop 03/11/17 at 20:16 ; Status DC Acetaminophen (Tylenol) 325 mg Q4H PRN PO PAIN SCALE 1 TO 2; Start 03/11/17 at 16:30 Aspirin (Aspirin Chew) 81 mg DAILY PO ; Start 03/12/17 at 09:00 Ticagrelor (Brilinta) 180 mg NOW ONCE PO ; Start 03/11/17 at 16:30; Stop at 16:33; Status DC Ticagrelor 90 mg 90 mg BID PO ; Start 03/12/17 at 09:00 Bivalirudin/ Sodium Chloride (Angiomax Inj/NS Inj) 50 ml @ 0 mls/hr Q0M IV ; Start 03/11/17 at 16:17; Stop 03/11/17 at 20:16; Status DC Atropine Sulfate (Atropine Inj) 0.5 mg UNSCH PRN IV VAGAL REPONSE; Start at 16:30 Ondansetron HCl (Zofran Inj) 4 mg Q4H PRN IV NAUSEA; Start 03/11/17 at 16:30 Metoprolol Tartrate (Lopressor) 12.5 mg BID PO Last administered on 03/11/17 20:45; Start 03/11/17 at 21:00 Atorvastatin Calcium (Lipitor) 10 mg HS PO Last administered on 03/11/17 20:45 ; Start 03/11/17 at 21:00 Miscellaneous (Pill Splitter) 1 ea UNSCH PRN OTHER SEE LABEL COMMENTS; Start at 16:45 Diphenhydramine HCl (Benadryl) 25 mg HS PRN PO INSOMNIA Last administered on 23:59; Start 03/11/17 at 23:30 Diphenhydramine HCl (Benadryl) 25 mg UNSCH X1 PRN PO IF NEEDED TONIGHT FOR SLEEP; Start 03/11/17 at 23:30; Stop 03/12/17 at 01:00; Status DC Family History heart disease in his brothers. Social History quit smoking years ago- drinks occasionally. Physical Exam Vital Signs Vital Signs Date Time Temp Pulse Resp B/P Pulse Ox O2 Delivery O2 Flow Rate FiO2 03/12/17 08:00 95 03/12/17 07:00 71 03/12/17 06:00 94 03/12/17 05:00 68 03/12/17 04:00 98.2 79 18 126/79 94 03/12/17 04:00 79 03/12/17 03:00 68 03/12/17 02:00 80 03/12/17 01:00 84 03/12/17 00:00 98.4 88 18 121/68 92 03/12/17 00:00 86 03/11/17 23:00 80 03/11/17 22:00 84 03/11/17 20:00 98.2 75 20 121/68 97 03/11/17 20:00 78 03/11/17 19:00 82 03/11/17 18:29 83 16 104/58 93 03/11/17 18:28 16 03/11/17 18:28 14 03/11/17 17:25 98.0 77 16 102/58 94 03/11/17 16:15 73 03/11/17 16:07 97.2 77 14 92/56 94 03/11/17 14:38 85 25 119/64 100 Nasal Cannula 2 03/11/17 14:04 97.5 104 22 140/78 100 Nasal Cannula 2 Physical Exam GENERAL: This is a well-nourished, well-developed patient, in no apparent distress. SKIN: No rashes, ecchymoses or lesions. Cool and dry. HEAD: Atraumatic. Normocephalic. No temporal or scalp tenderness. EYES: Pupils equal round and reactive. Extraocular motions intact. No scleral icterus. No injection or drainage. ENT: Nose without bleeding, purulent drainage or septal hematoma. Throat without erythema, tonsillar hypertrophy or exudate. Uvula midline. Airway patent. NECK: Trachea midline. No JVD or lymphadenopathy. Supple, nontender, no meningeal signs. CARDIOVASCULAR: Regular rate and rhythm without murmurs, gallops, or rubs. RESPIRATORY: bilateral wheezing. GASTROINTESTINAL: Abdomen soft, non-tender, nondistended. No hepato-splenomegaly , or palpable masses. No guarding. MUSCULOSKELETAL: Extremities without clubbing, cyanosis, or edema. No joint tenderness, effusion, or edema noted. No calf tenderness. Negative Homans sign bilaterally. NEUROLOGICAL: Awake and alert. Cranial nerves II through XII intact. Motor and sensory grossly within normal limits. Five out of 5 muscle strength in all muscle groups. Normal speech. Laboratory Laboratory Tests Test 03/11/17 03/12/17 14:04 03:15 White Blood Count 10.1 12.3 Red Blood Count 5.38 4.65 Hemoglobin 15.3 13.0 Bedside Hemoglobin 14.6 Hematocrit 44.3 38.6 Bedside Hematocrit 43.0 Mean Corpuscular Volume 82.4 83.0 Mean Corpuscular Hemoglobin 28.4 27.9 Mean Corpuscular Hemoglobin 34.5 33.7 Concent Red Cell Distribution Width 14.0 14.4 Platelet Count 223 190 Mean Platelet Volume 9.0 9.3 Neutrophils (%) (Auto) 71.1 79.4 Lymphocytes (%) (Auto) 18.2 8.2 Monocytes (%) (Auto) 9.3 12.1 Eosinophils (%) (Auto) 0.7 0.0 Basophils (%) (Auto) 0.7 0.3 Neutrophils # (Auto) 7.2 9.8 Lymphocytes # (Auto) 1.8 1.0 Monocytes # (Auto) 0.9 1.5 Eosinophils # (Auto) 0.1 0.0 Basophils # (Auto) 0.1 0.0 CBC Comment DIFF FINAL DIFF FINAL Differential Comment Prothrombin Time 10.5 Prothromb Time International 1.0 Ratio Activated Partial 23.2 Thromboplast Time Bedside Sodium 143 Bedside Potassium 3.2 Bedside Chloride 110 Bedside Blood Urea Nitrogen 24 Bedside Creatinine 1.2 Bedside Glucose 135 Calcium Level 9.2 8.4 Magnesium Level 1.9 Total Creatine Kinase 128 Creatine Kinase MB 3.2 Troponin I 0.06 Sodium Level 141 Potassium Level 3.8 Chloride Level 108 Carbon Dioxide Level 22.3 Anion Gap 11 Blood Urea Nitrogen 27 Creatinine 1.19 Estimat Glomerular Filtration 60 Rate Random Glucose 145 Triglycerides Level 84 Cholesterol Level 124 LDL Cholesterol 59 HDL Cholesterol 48.6 Cholesterol/HDL Ratio 2.55 Result Diagram: 03/12/1731403/12/17314 Imaging Last Impressions Chest X-Ray 03/11/17 1412 Signed Impressions: Service Date/Time: Monday, March 11, 2017 14:06 - CONCLUSION: Mild linear scarring or atelectasis at the right base. Aris Parks MD EKG; sinus rhythm with ST elevation in anterior leads Assessment and Plan Assessment and Plan A/P - STEMI s/p cardiac catheterization with : 1. Successful PCI/LEW to proximal LAD in the setting of STEMI. 2. Elevated LVEDP. 3. Preserved systolic function with estimated ejection fraction of 50%. continue aspirin, Brilinta, BB and statin- cardiology following. -possible bronchitis- start zithromax and neb treatment -hypertension; on metoprolol- will monitor and adjust the regimen as needed -dyslipidemia; on statin -GERD; start prilosec thank you for the consult. Discussed Condition With the patient and RN. Neva Andrade MD Mar 12, 2017 08:54
[2017-03-12] MEDS ORDERED: guaiFENesin SOLUTION 200 MG/10 ML CUP PO PRN (09:00)
[2017-03-12] MEDS: AZITHROMYCIN 250 MG TAB PO SCH (09:13)
[2017-03-12] MEDS: PANTOPRAZOLE SOD 20 MG DELAYED RELEASE TAB PO SCH (09:13)
--- NOTE | 2017-03-12 10:15 | PD.CARD.PN ---
Subjective Subjective Remarks no CV complaints Objective Medications Current Medications Medications (Trade) Dose Ordered Sig/Brittney Route Start Time Stop Time Status Last Admin (Tylenol) 325 mg Q4H PRN PO 03/11/17 16:30 (Aspirin Chew) 81 mg DAILY PO 03/12/17 09:00 03/12/17 08:48 (Brilinta) 90 mg BID PO 03/12/17 09:00 03/12/17 08:48 (Atropine Inj) 0.5 mg UNSCH PRN IV 03/11/17 16:30 (Zofran Inj) 4 mg Q4H PRN IV 03/11/17 16:30 (Lopressor) 12.5 mg BID PO 03/11/17 21:00 03/12/17 08:48 (Lipitor) 10 mg HS PO 03/11/17 21:00 03/11/17 20:45 (Pill Splitter) 1 ea UNSCH PRN OTHER 03/11/17 16:45 (Zithromax) 500 mg DAILY PO 03/12/17 09:00 03/12/17 09:13 (Protonix) 20 mg DAILY PO 03/12/17 09:00 03/12/17 09:13 (Robitussin Liq) 200 mg Q4H PRN PO 03/12/17 09:00 (Benadryl) 50 mg HS PRN PO 03/12/17 09:15 Vital Signs / I&O Vital Signs Date Time Temp Pulse Resp B/P Pulse Ox O2 Delivery O2 Flow Rate FiO2 03/12/17 10:00 80 03/12/17 09:00 77 03/12/17 08:00 95 03/12/17 08:00 98.0 79 18 126/70 94 03/12/17 07:00 71 03/12/17 06:00 94 03/12/17 05:00 68 03/12/17 04:00 98.2 79 18 126/79 94 03/12/17 04:00 79 03/12/17 03:00 68 03/12/17 02:00 80 03/12/17 01:00 84 03/12/17 00:00 98.4 88 18 121/68 92 03/12/17 00:00 86 03/11/17 23:00 80 03/11/17 22:00 84 03/11/17 20:00 98.2 75 20 121/68 97 03/11/17 20:00 78 03/11/17 19:00 82 03/11/17 18:29 83 16 104/58 93 03/11/17 18:28 16 03/11/17 18:28 14 03/11/17 17:25 98.0 77 16 102/58 94 03/11/17 16:15 73 03/11/17 16:07 97.2 77 14 92/56 94 03/11/17 14:38 85 25 119/64 100 Nasal Cannula 2 03/11/17 14:04 97.5 104 22 140/78 100 Nasal Cannula 2 I/O 03/11/17 03/11/17 03/11/17 03/12/17 03/12/17 03/12/17 07:00 15:00 23:00 07:00 15:00 23:00 Intake Total 220 ml 920 ml Output Total 650 ml Balance 220 ml 270 ml Intake Oral 120 ml 420 ml IV Total 100 ml 500 ml Output Urine Total 650 ml Physical Exam GENERAL: Well-nourished, well-developed patient. SKIN: Warm and dry. HEAD: Normocephalic. EYES: No scleral icterus. No injection or drainage. NECK: Supple, trachea midline. No JVD or lymphadenopathy. CARDIOVASCULAR: Regular rate and rhythm without murmurs, gallops, or rubs. RESPIRATORY: Breath sounds equal bilaterally. No accessory muscle use. + wheezing and rales GASTROINTESTINAL: Abdomen soft, non-tender, nondistended. EXTREMITIES: No cyanosis, or edema. NEUROLOGICAL: Awake, alert, and oriented x 3. Non-focal. Laboratory Laboratory Tests Test 03/11/17 03/12/17 14:04 03:15 White Blood Count 10.1 TH/MM3 12.3 TH/MM3 Red Blood Count 5.38 MIL/MM3 4.65 MIL/MM3 Hemoglobin 15.3 GM/DL 13.0 GM/DL Bedside Hemoglobin 14.6 G/DL Hematocrit 44.3 % 38.6 % Bedside Hematocrit 43.0 % Mean Corpuscular Volume 82.4 FL 83.0 FL Mean Corpuscular Hemoglobin 28.4 PG 27.9 PG Mean Corpuscular Hemoglobin 34.5 % 33.7 % Concent Red Cell Distribution Width 14.0 % 14.4 % Platelet Count 223 TH/MM3 190 TH/MM3 Mean Platelet Volume 9.0 FL 9.3 FL Neutrophils (%) (Auto) 71.1 % 79.4 % Lymphocytes (%) (Auto) 18.2 % 8.2 % Monocytes (%) (Auto) 9.3 % 12.1 % Eosinophils (%) (Auto) 0.7 % 0.0 % Basophils (%) (Auto) 0.7 % 0.3 % Neutrophils # (Auto) 7.2 TH/MM3 9.8 TH/MM3 Lymphocytes # (Auto) 1.8 TH/MM3 1.0 TH/MM3 Monocytes # (Auto) 0.9 TH/MM3 1.5 TH/MM3 Eosinophils # (Auto) 0.1 TH/MM3 0.0 TH/MM3 Basophils # (Auto) 0.1 TH/MM3 0.0 TH/MM3 CBC Comment DIFF FINAL DIFF FINAL Differential Comment Prothrombin Time 10.5 SEC Prothromb Time International 1.0 RATIO Ratio Activated Partial 23.2 SEC Thromboplast Time Bedside Sodium 143 MMOL/L Bedside Potassium 3.2 MMOL/L Bedside Chloride 110 MMOL/L Bedside Blood Urea Nitrogen 24 MG/DL Bedside Creatinine 1.2 MG/DL Bedside Glucose 135 MG/DL Calcium Level 9.2 MG/DL 8.4 MG/DL Magnesium Level 1.9 MG/DL Total Creatine Kinase 128 U/L Creatine Kinase MB 3.2 NG/ML Troponin I 0.06 NG/ML Sodium Level 141 MEQ/L Potassium Level 3.8 MEQ/L Chloride Level 108 MEQ/L Carbon Dioxide Level 22.3 MEQ/L Anion Gap 11 MEQ/L Blood Urea Nitrogen 27 MG/DL Creatinine 1.19 MG/DL Estimat Glomerular Filtration 60 ML/MIN Rate Random Glucose 145 MG/DL Triglycerides Level 84 MG/DL Cholesterol Level 124 MG/DL LDL Cholesterol 59 MG/DL HDL Cholesterol 48.6 MG/DL Cholesterol/HDL Ratio 2.55 RATIO Imaging Last Impressions Chest X-Ray 03/11/17 1412 Signed Impressions: Service Date/Time: Saturday, March 11, 2017 14:06 - CONCLUSION: Mild linear scarring or atelectasis at the right base. Aris Parks MD Assessment and Plan Problem List: (1) STEMI (ST elevation myocardial infarction) Assessment and Plan: Cont DAPT with ASA and Brilinta Cont BB, statins ECHO pending Encourage ambulation and incentive spirometry Lasix 40mg IV BID Nebs PRN for SOB Problem Qualifiers (1) STEMI (ST elevation myocardial infarction): Qualified Code: I21.02 - ST elevation myocardial infarction involving left anterior descending (LAD) coronary artery Cuco Godinez MD Mar 12, 2017 10:15
[2017-03-12] MEDS ORDERED: FUROSEMIDE 40 MG/4 ML VIAL IV PUSH ONE (11:15)
--- NOTE | 2017-03-12 11:50 | EKG ---
Date Performed: 03/11/2017 Time Performed: 14:05:29 PTAGE: 76 years EKG: Sinus rhythm POSSIBLE LEFT ATRIAL ENLARGEMENT LOW QRS VOLTAGE IN PRECORDIAL LEADS MARKED ST ELEVATION, CONSIDER A NTERIOR INJURY ACUTE [place] INTERPRETATION BASED ON A DEFAULT AGE OF 40 YEARS NO PREVIOUS TRACING DOCTOR: Daniel Church Interpretating Date/Time 03/12/2017 11:47:56
--- NOTE | 2017-03-12 12:15 | EKG ---
Date Performed: 03/11/2017 Time Performed: 16:25:46 PTAGE: 76 years EKG: Sinus rhythm with borderline 1st degree A-V block. Compared to previous tracing, marked ST segment elevation has significantly improved. Poor R wave progression is present consistent with anterior infarction. Jami deleon ECG PREVIOUS TRACING : 03/11/2017 14.05 DOCTOR: Daniel Church Interpretating Date/Time 03/12/2017 12:12:39
--- NOTE | 2017-03-12 14:45 | RADRPT ---
EXAM DATE/TIME: 03/12/2017 13:52 [place] COMPARISON: CHEST SINGLE AP, November 02, 2013, 13:31. CHEST SINGLE AP, March 11, 2017, 14:06. INDICATIONS : Cardiomyopathy MEDICAL HISTORY : None. SURGICAL HISTORY : None. ENCOUNTER: Initial ACUITY: 2 days PAIN SCORE: 0/10 LOCATION: Bilateral chest FINDINGS: A single view of the chest demonstrates a new area of suspected consolidation of the right mid lung. There continues to be linear scar or atelectasis at the right mid to lower lung. The left lung is jayda ar. The heart size is normal. CONCLUSION: New consolidation at the right mid lung. Aris Parks MD on March 12, 2017 at 14:42 Board Certified Radiologist. This report was verified electronically.
--- NOTE | 2017-03-12 15:13 | ECHRPT ---
Indication: Chest pain, unspecified CONCLUSIONS Normal left ventricular size. Mild concentric left ventricular hypertrophy. The left ventricular systolic function is moderately reduced with an estimated ejection fraction in the range of 40-45%. Hypokinetic mid-inferoseptal wall motion. Hypokinetic apical-septal wall motion. BThe left atrial size is mildly dilated. Mild mitral valve regurgitation. Trace aortic valve regurgitation. There is mild tricuspid valve regurgitation. There is estimated moderate pulmonary hypertension present (range 50-60 mmHg). IVC 2.5 BP: / HR: Rhythm: MEASUREMENTS (Male / Female) Normal Values Technical Quality:Good 2D ECHO LV Diastolic Diameter PLAX 4.6 cm 4.2 - 5.9 / 3.9 - 5.3 cm LV Systolic Diameter PLAX 3.8 cm IVS Diastolic Thickness 1.4 cm 0.6 - 1.0 / 0.6 - 0.9 cm LVPW Diastolic Thickness 1.3 cm 0.6 - 1.0 / 0.6 - 0.9 cm LV Relative Wall Thickness 0.6 RV Internal Dim ED PLAX 2.4 cm M-MODE Aortic Root Diameter MM 3.2 cm LA Systolic Diameter MM 4.6 cm LA Ao Ratio MM 1.4 AV Cusp Separation MM 1.8 cm DOPPLER Mitral E Point Velocity 124.0 cm/s Mitral A Point Velocity 117.0 cm/s Mitral E to A Ratio 1.1 LV E' Lateral Velocity 6.1 cm/s Mitral E to LV E' Lateral Ratio 20.2 LV E' Septal Velocity 9.2 cm/s Mitral E to LV E' Septal Ratio 13.5 TR Peak Velocity 337.0 cm/s TR Peak Gradient 45.4 mmHg FINDINGS LEFT VENTRICLE Hypokinetic mid-inferoseptal wall motion. Hypokinetic apical-septal wall motion. Normal left ventricular size. Mild concentric left ventricular hypertrophy. The left ventricular systolic function is moderately reduced with an estimated ejection fraction in the range of 40-45%. RIGHT VENTRICLE Normal right ventricular size and systolic function. LEFT ATRIUM The left atrial size is mildly dilated. RIGHT ATRIUM The right atrial size is normal. ATRIAL SEPTUM Normal atrial septal thickness without atrial level shunting by limited color doppler interrogation. AORTA The aortic root and proximal ascending aorta are normal in size on limited imaging. MITRAL VALVE Moderate thickening of the mitral valve leaflets. Mild mitral valve regurgitation. AORTIC VALVE Aortic valve sclerosis is present. Trileaflet aortic valve. Trace aortic valve regurgitation. TRICUSPID VALVE Structurally normal tricuspid valve. There is mild tricuspid valve regurgitation. There is estimated moderate pulmonary hypertension present (range 50-60 mmHg). PULMONARY VALVE The pulmonary valve is not well visualized. VESSELS IVC 2.5 PERICARDIUM No pericardial effusion. Gorge Nash MD (Electronically Signed) Final Date:12 March 2017 15:12
[2017-03-12] MEDS: FUROSEMIDE 40 MG/4 ML VIAL IV PUSH SCH (18:00)
[2017-03-12] MEDS: ATORVASTATIN 10 MG TAB PO SCH (21:14)
[2017-03-12] MEDS: diphenhydrAMINE HCL 25 MG CAP PO PRN (21:14)
[2017-03-13] VITALS (25 sets, daily range): BP systolic 112–129; BP diastolic 55–70; PULSE 62–91; RESP 16–20; TEMP 98.1–99.8; O2SAT 90–95
[2017-03-13] MEDS ORDERED: PIPERACIL-TAZO 4.5 GM PREMIX 100 ML IV SCH (06:00)
[2017-03-13 07:38] LABS: ALKALINE PHOSPHATASE 60 U/L (45-117); ALT (GPT) 74 U/L (12-78); TOTAL BILIRUBIN ADULT 0.8 MG/DL (0.2-1.0)
[2017-03-13 07:43] LABS: ANION GAP 9 MEQ/L (5-15); AST (GOT) 297 U/L (15-37); BICARBONATE 27.6 MEQ/L (21.0-32.0); BLOOD UREA NITROGEN 28 MG/DL (7-18); CHLORIDE 104 MEQ/L (98-107); GLOMERULAR FILTRATION RATE 47 ML/MIN (>89); POTASSIUM 3.1 MEQ/L (3.5-5.1); SODIUM (NA) 141 MEQ/L (136-145)
[2017-03-13] MEDS: AZITHROMYCIN 250 MG TAB PO SCH (08:45)
[2017-03-13] MEDS: PIPERACIL-TAZO 4.5 GM PREMIX 100 ML IV SCH ×3 (08:45→20:49)
[2017-03-13] MEDS: TICAGRELOR 90 MG TAB PO SCH ×2 (08:45→20:49)
[2017-03-13] MEDS: FUROSEMIDE 40 MG/4 ML VIAL IV PUSH SCH (08:45)
[2017-03-13] MEDS: METOPROLOL TARTRATE 25 MG TAB PO SCH ×2 (08:45→20:49)
[2017-03-13] MEDS: PANTOPRAZOLE SOD 20 MG DELAYED RELEASE TAB PO SCH (08:45)
[2017-03-13] MEDS: ASPIRIN 81 MG CHEW TAB PO SCH (08:45)
[2017-03-13] MEDS: ATORVASTATIN 40 MG TAB PO SCH (08:46)
--- NOTE | 2017-03-13 11:01 | PD.CARD.PN ---
Objective Medications Current Medications Medications (Trade) Dose Ordered Sig/Brittney Route Start Time Stop Time Status Last Admin (Tylenol) 325 mg Q4H PRN PO 03/11/17 16:30 03/12/17 21:15 (Aspirin Chew) 81 mg DAILY PO 03/12/17 09:00 03/13/17 08:45 (Brilinta) 90 mg BID PO 03/12/17 09:00 03/13/17 08:45 (Atropine Inj) 0.5 mg UNSCH PRN IV 03/11/17 16:30 (Zofran Inj) 4 mg Q4H PRN IV 03/11/17 16:30 (Lopressor) 12.5 mg BID PO 03/11/17 21:00 03/13/17 08:45 (Pill Splitter) 1 ea UNSCH PRN OTHER 03/11/17 16:45 (Zithromax) 500 mg DAILY PO 03/12/17 09:00 03/13/17 08:45 (Protonix) 20 mg DAILY PO 03/12/17 09:00 03/13/17 08:45 (Robitussin Liq) 200 mg Q4H PRN PO 03/12/17 09:00 (Benadryl) 50 mg HS PRN PO 03/12/17 09:15 03/12/17 21:14 Atorvastatin Calcium 40 mg 40 mg DAILY PO 03/13/17 09:00 03/13/17 08:46 (Zosyn 4.5 Gm Premix) 100 ml @ 200 mls/hr Q6H IV 03/13/17 08:00 03/13/17 08:45 Vital Signs / I&O Vital Signs Date Time Temp Pulse Resp B/P Pulse Ox O2 Delivery O2 Flow Rate FiO2 03/13/17 10:04 67 03/13/17 09:46 73 03/13/17 08:30 71 03/13/17 08:30 98.9 75 18 122/68 94 03/13/17 06:00 78 03/13/17 05:00 68 03/13/17 04:00 99.8 62 18 121/69 92 03/13/17 04:00 69 03/13/17 03:00 69 03/13/17 02:00 68 03/13/17 01:00 73 03/13/17 00:00 99.2 73 18 113/62 92 03/13/17 00:00 91 03/12/17 23:00 67 03/12/17 22:00 66 03/12/17 21:00 70 03/12/17 20:00 68 03/12/17 20:00 101.5 75 20 124/66 92 03/12/17 19:00 75 03/12/17 18:00 74 03/12/17 17:00 72 03/12/17 16:00 74 03/12/17 15:12 98.2 79 18 122/64 94 03/12/17 15:00 79 03/12/17 14:00 77 03/12/17 13:00 76 03/12/17 12:00 83 03/12/17 11:43 98.4 79 18 120/66 94 03/12/17 11:00 73 I/O 03/12/17 03/12/17 03/12/17 03/13/17 03/13/17 03/13/17 07:00 15:00 23:00 07:00 15:00 23:00 Intake Total 920 ml 875 ml 240 ml Output Total 650 ml 1595 ml 1525 ml Balance 270 ml -720 ml -1285 ml Intake Oral 420 ml 875 ml 240 ml IV Total 500 ml Output Urine Total 650 ml 1595 ml 1525 ml # Bowel Movements 1 Physical Exam GENERAL: Well-nourished, well-developed patient. SKIN: Warm and dry. HEAD: Normocephalic. EYES: No scleral icterus. No injection or drainage. NECK: Supple, trachea midline. No JVD or lymphadenopathy. CARDIOVASCULAR: Regular rate and rhythm without murmurs, gallops, or rubs. RESPIRATORY: Breath sounds equal bilaterally. No accessory muscle use. + wheezing and rales GASTROINTESTINAL: Abdomen soft, non-tender, nondistended. EXTREMITIES: No cyanosis, or edema. NEUROLOGICAL: Awake, alert, and oriented x 3. Non-focal. Laboratory Laboratory Tests Test 03/13/17 05:49 Sodium Level 141 MEQ/L Potassium Level 3.1 MEQ/L Chloride Level 104 MEQ/L Carbon Dioxide Level 27.6 MEQ/L Anion Gap 9 MEQ/L Blood Urea Nitrogen 28 MG/DL Creatinine 1.45 MG/DL Estimat Glomerular Filtration 47 ML/MIN Rate Random Glucose 117 MG/DL Calcium Level 8.5 MG/DL Total Bilirubin 0.8 MG/DL Aspartate Amino Transf 297 U/L (AST/SGOT) Alanine Aminotransferase 74 U/L (ALT/SGPT) Alkaline Phosphatase 60 U/L B-Type Natriuretic Peptide 555 PG/ML Total Protein 6.2 GM/DL Albumin 2.8 GM/DL Imaging Last Impressions Chest X-Ray 03/12/17 0000 Signed Impressions: Service Date/Time: Sunday, March 12, 2017 13:52 - CONCLUSION: New consolidation at the right mid lung. Aris Parks MD Assessment and Plan Problem List: (1) STEMI (ST elevation myocardial infarction) Assessment and Plan: Cont DAPT Replace K+ D/C Lasix IV hydration Encourage ambulation Incentive spirometry Problem Qualifiers (1) STEMI (ST elevation myocardial infarction): Qualified Code: I21.02 - ST elevation myocardial infarction involving left anterior descending (LAD) coronary artery Cuco Godinez MD Mar 13, 2017 11:01
[2017-03-13] MEDS: SODIUM CHLOR 0.9% 1000 ML INJ 1,000 ML IV SCH ×2 (11:15→23:32)
[2017-03-13] MEDS ORDERED: POTASSIUM CHLORIDE 20 MEQ CONTROLLED RELEASE TAB PO ONE (11:15)
--- NOTE | 2017-03-13 12:04 | HHI.PR ---
Subjective Remarks sitting on the chair comfortably with no chest pain or sob. wheezing has much improved. had a fever last night. no chest pain. Objective Vitals Vital Signs Date Time Temp Pulse Resp B/P Pulse Ox O2 Delivery O2 Flow Rate FiO2 03/13/17 10:04 67 03/13/17 09:46 73 03/13/17 08:30 71 03/13/17 08:30 98.9 75 18 122/68 94 03/13/17 06:00 78 03/13/17 05:00 68 03/13/17 04:00 99.8 62 18 121/69 92 03/13/17 04:00 69 03/13/17 03:00 69 03/13/17 02:00 68 03/13/17 01:00 73 03/13/17 00:00 99.2 73 18 113/62 92 03/13/17 00:00 91 03/12/17 23:00 67 03/12/17 22:00 66 03/12/17 21:00 70 03/12/17 20:00 68 03/12/17 20:00 101.5 75 20 124/66 92 03/12/17 19:00 75 03/12/17 18:00 74 03/12/17 17:00 72 03/12/17 16:00 74 03/12/17 15:12 98.2 79 18 122/64 94 03/12/17 15:00 79 03/12/17 14:00 77 03/12/17 13:00 76 I/O 03/12/17 03/12/17 03/12/17 03/13/17 03/13/17 03/13/17 07:00 15:00 23:00 07:00 15:00 23:00 Intake Total 920 ml 875 ml 240 ml Output Total 650 ml 1595 ml 1525 ml Balance 270 ml -720 ml -1285 ml Intake Oral 420 ml 875 ml 240 ml IV Total 500 ml Output Urine Total 650 ml 1595 ml 1525 ml # Bowel Movements 1 Result Diagram: 03/12/17 0315 03/13/17 0549 Imaging Last Impressions Chest X-Ray 03/12/17 0000 Signed Impressions: Service Date/Time: Sunday, March 12, 2017 13:52 - CONCLUSION: New consolidation at the right mid lung. Aris Parks MD Objective Remarks GENERAL: This is a well-nourished, well-developed patient, in no apparent distress. CARDIOVASCULAR: Regular rate and regular rhythm without murmurs, gallops, or rubs. RESPIRATORY: Clear to auscultation. Breath sounds equal bilaterally. No wheezes , rales, or rhonchi. GASTROINTESTINAL: Abdomen soft, non-tender, nondistended. Normal, active bowel sounds MUSCULOSKELETAL: Extremities without clubbing, cyanosis, or edema. NEURO: Alert & Oriented x4 to person, place, time, situation. Moves all ext x4 Procedures cardiac cath Medications and IVs Current Medications Nitroglycerin (Nitrostat Sl) 0.4 mg NOW STAT SL Last administered on 14:23; Start 03/11/17 at 14:12; Stop 03/11/17 at 14:16; Status DC Heparin Sodium (Porcine) (Heparin Inj) 5,000 units NOW STAT IV Last administered on 03/11/17 14:23; Start 03/11/17 at 14:12; Stop 03/11/17 at 14:16 ; Status DC Morphine Sulfate 2 mg 2 mg ONCE ONCE IV PUSH Last administered on 03/11/17 14 :37; Start 03/11/17 at 14:30; Stop 03/11/17 at 14:31; Status DC Potassium Chloride 100 ml @ 50 mls/hr ONCE ONCE IV Last administered on 14:32; Start 03/11/17 at 14:30; Stop 03/11/17 at 16:29; Status DC Heparin Sodium/ Sodium Chloride (Heparin-NS/Pf Inj) 500 ml @ As Directed STK- MED ONCE .ROUTE ; Start 03/11/17 at 14:39; Stop 03/11/17 at 14:40; Status DC Bivalirudin 250 mg 250 mg STK-MED ONCE .ROUTE Last administered on 03/11/17 15 :03; Start 03/11/17 at 15:03; Stop 03/11/17 at 15:04; Status DC Sodium Chloride 250 ml @ As Directed STK-MED ONCE .ROUTE Last administered on 03/11/17 15:04; Start 03/11/17 at 15:04; Stop 03/11/17 at 15:05; Status DC Dopamine HCl/ Dextrose (DOPamine INJ PREMIX) 500 ml @ As Directed STK-MED ONCE .ROUTE ; Start 03/11/17 at 15:12; Stop 03/11/17 at 15:13; Status DC Fentanyl Citrate (fentaNYL INJ) 100 mcg STK-MED ONCE .ROUTE Last administered on 03/11/17 15:40; Start 03/11/17 at 15:40; Stop 03/11/17 at 15:41; Status DC Ticagrelor (Brilinta) 180 mg STK-MED ONCE PO Last administered on 03/11/17 15: 48; Start 03/11/17 at 15:43; Stop 03/11/17 at 15:44; Status DC Ondansetron HCl 4 mg 4 mg STK-MED ONCE .ROUTE Last administered on 03/11/17 15 :50; Start 03/11/17 at 15:50; Stop 03/11/17 at 15:51; Status DC Sodium Chloride (NS 1000 ml Inj) 1,000 ml @ 125 mls/hr Q8H IV Last administered on 03/11/17 16:17; Start 03/11/17 at 16:17; Stop 03/11/17 at 20:16 ; Status DC Acetaminophen (Tylenol) 325 mg Q4H PRN PO PAIN SCALE 1 TO 2 Last administered on 03/12/17 21:15; Start 03/11/17 at 16:30 Aspirin (Aspirin Chew) 81 mg DAILY PO Last administered on 03/13/17 08:45; Start 03/12/17 at 09:00 Ticagrelor (Brilinta) 180 mg NOW ONCE PO ; Start 03/11/17 at 16:30; Stop at 16:33; Status DC Ticagrelor 90 mg 90 mg BID PO Last administered on 03/13/17 08:45; Start 03/12 at 09:00 Bivalirudin/ Sodium Chloride (Angiomax Inj/NS Inj) 50 ml @ 0 mls/hr Q0M IV ; Start 03/11/17 at 16:17; Stop 03/11/17 at 20:16; Status DC Atropine Sulfate (Atropine Inj) 0.5 mg UNSCH PRN IV VAGAL REPONSE; Start at 16:30 Ondansetron HCl (Zofran Inj) 4 mg Q4H PRN IV NAUSEA; Start 03/11/17 at 16:30 Metoprolol Tartrate (Lopressor) 12.5 mg BID PO Last administered on 03/13/17 08:45; Start 03/11/17 at 21:00 Atorvastatin Calcium (Lipitor) 10 mg HS PO Last administered on 03/12/17 21:14 ; Start 03/11/17 at 21:00; Stop 03/13/17 at 05:15; Status DC Miscellaneous (Pill Splitter) 1 ea UNSCH PRN OTHER SEE LABEL COMMENTS; Start at 16:45 Diphenhydramine HCl (Benadryl) 25 mg HS PRN PO INSOMNIA Last administered on 23:59; Start 03/11/17 at 23:30; Stop 03/12/17 at 09:09; Status DC Diphenhydramine HCl (Benadryl) 25 mg UNSCH X1 PRN PO IF NEEDED TONIGHT FOR SLEEP; Start 03/11/17 at 23:30; Stop 03/12/17 at 01:00; Status DC Azithromycin (Zithromax) 500 mg DAILY PO Last administered on 03/13/17 08:45; Start 03/12/17 at 09:00 Albuterol Sulfate (Albuterol Neb) 1.25 mg Q4HR NEB PRN NEB SOB/WHEEZING; Start 03/12/17 at 08:45 Pantoprazole Sodium (Protonix) 20 mg DAILY PO Last administered on 03/13/17 08 :45; Start 03/12/17 at 09:00 Guaifenesin (Robitussin Liq) 200 mg Q4H PRN PO COUGH; Start 03/12/17 at 09:00 Diphenhydramine HCl (Benadryl) 50 mg HS PRN PO INSOMNIA Last administered on 21:14; Start 03/12/17 at 09:15 Furosemide (Lasix Inj) 40 mg BID@,18 IV PUSH Last administered on 03/13/17 08:45; Start 03/12/17 at 18:00; Stop 03/13/17 at 10:58; Status DC Furosemide (Lasix Inj) 40 mg NOW ONCE IV PUSH Last administered on 03/12/17 11:13; Start 03/12/17 at 11:15; Stop 03/12/17 at 11:16; Status DC Atorvastatin Calcium 40 mg 40 mg DAILY PO Last administered on 03/13/17 08:46 ; Start 03/13/17 at 09:00 Piperacillin Sod/ Tazobactam Sod 100 ml @ 200 mls/hr Q6H IV ; Start 03/13/17 at 06:00; Stop 03/13/17 at 08:15; Status DC Piperacillin Sod/ Tazobactam Sod 100 ml @ 200 mls/hr Q6H IV Last administered on 03/13/17 08:45; Start 03/13/17 at 08:00 Sodium Chloride (NS 1000 ml Inj) 1,000 ml @ 85 mls/hr [id number] IV Last administered on 03/13/17 11:15; Start 03/13/17 at 11:15 Potassium Chloride (KCl) 40 meq NOW ONCE PO ; Start 03/13/17 at 11:15; Stop at 11:16; Status DC A/P Assessment and Plan A/P - STEMI s/p cardiac catheterization with : 1. Successful PCI/LEW to proximal LAD in the setting of STEMI. 2. Elevated LVEDP. 3. Preserved systolic function with estimated ejection fraction of 50%. continue aspirin, Brilinta, BB and statin- cardiology following. -right middle lobe pneumonia started on broad spectrum IV antibiotics- will obtain the blood cultures. continue neb treatment as needed. -acute kidney injury;hold lasix- continue IV fluid; BMP in am. -mild hypokalemia; will replace and monitor -elevated LFT's- asymptomatic- will monitor;check hepatitis panel- repeat LFT' s in am- -hypertension; on metoprolol- will monitor and adjust the regimen as needed -dyslipidemia; on statin -GERD; started prilosec Discharge Planning dc home within the next 24-48 hrs if remains stable. Neva Andrade MD Mar 13, 2017 12:04
[2017-03-13] MEDS: diphenhydrAMINE HCL 25 MG CAP PO PRN (20:49)
[2017-03-14] VITALS (14 sets, daily range): BP systolic 118–125; BP diastolic 70–72; PULSE 66–96; RESP 18–20; TEMP 98.4–99.7; O2SAT 95–98
[2017-03-14] MEDS: PIPERACIL-TAZO 4.5 GM PREMIX 100 ML IV SCH ×2 (03:02→08:00)
[2017-03-14 05:52] LABS: ALT (GPT) 56 U/L (12-78); ANION GAP 11 MEQ/L (5-15); AST (GOT) 147 U/L (15-37); BICARBONATE 24.6 MEQ/L (21.0-32.0); BLOOD UREA NITROGEN 25 MG/DL (7-18); CHLORIDE 107 MEQ/L (98-107); GLOMERULAR FILTRATION RATE 49 ML/MIN (>89); POTASSIUM 3.1 MEQ/L (3.5-5.1); SODIUM (NA) 143 MEQ/L (136-145)
[2017-03-14 05:55] LABS: ALKALINE PHOSPHATASE 52 U/L (45-117)
[2017-03-14] MEDS ORDERED: ATOR40TA16 PO (08:30)
[2017-03-14] MEDS ORDERED: AUGM875T3 PO (08:30)
[2017-03-14] MEDS ORDERED: BRIL90TA PO (08:30)
[2017-03-14] MEDS ORDERED: METO25TA3 PO (08:30)
[2017-03-14] MEDS ORDERED: ASPI81CH25 PO (08:30)
--- NOTE | 2017-03-14 08:42 | HHI.PR ---
Subjective Remarks resting comfortably with no distress. no chest pain, sob or cough. no fever spike over night. Objective Vitals Vital Signs Date Time Temp Pulse Resp B/P Pulse Ox O2 Delivery O2 Flow Rate FiO2 03/14/17 07:00 67 03/14/17 06:00 77 03/14/17 05:00 88 03/14/17 04:00 66 03/14/17 03:15 99.7 77 18 125/72 95 03/14/17 03:15 95 Nasal Cannula 2.00 03/14/17 03:00 68 03/14/17 02:00 70 03/14/17 01:00 66 03/14/17 00:00 70 03/13/17 23:32 94 Nasal Cannula 2.00 03/13/17 23:30 99.5 75 18 129/68 90 03/13/17 23:30 90 Room Air 03/13/17 23:00 71 03/13/17 22:00 66 03/13/17 21:00 74 03/13/17 20:20 98.1 77 16 128/70 93 03/13/17 20:20 93 Room Air 03/13/17 20:00 66 03/13/17 19:00 76 03/13/17 18:07 71 03/13/17 17:09 69 03/13/17 16:19 67 03/13/17 15:22 68 03/13/17 15:22 98.3 75 18 117/55 95 03/13/17 14:07 74 03/13/17 13:42 69 03/13/17 12:07 81 03/13/17 11:15 64 03/13/17 11:15 98.2 64 18 112/69 94 03/13/17 10:04 67 03/13/17 09:46 73 I/O 03/13/17 03/13/17 03/13/17 03/14/17 03/14/17 03/14/17 07:00 15:00 23:00 07:00 15:00 23:00 Intake Total 240 ml 1257 ml 1460 ml Output Total 1525 ml 1425 ml 650 ml Balance -1285 ml -168 ml 810 ml Intake Oral 240 ml 570 ml 240 ml IV Total 687 ml 1220 ml Output Urine Total 1525 ml 1425 ml 650 ml # Bowel Movements 1 0 Result Diagram: 03/12/17 0315 03/14/17 0512 Imaging Last Impressions Chest X-Ray 03/12/17 0000 Signed Impressions: Service Date/Time: Sunday, March 12, 2017 13:52 - CONCLUSION: New consolidation at the right mid lung. Aris Parks MD Objective Remarks GENERAL: This is a well-nourished, well-developed patient, in no apparent distress. CARDIOVASCULAR: Regular rate and regular rhythm without murmurs, gallops, or rubs. RESPIRATORY: Clear to auscultation. Breath sounds equal bilaterally. No wheezes , rales, or rhonchi. GASTROINTESTINAL: Abdomen soft, non-tender, nondistended. Normal, active bowel sounds MUSCULOSKELETAL: Extremities without clubbing, cyanosis, or edema. NEURO: Alert & Oriented x4 to person, place, time, situation. Moves all ext x4 Procedures cardiac cath Medications and IVs Current Medications Nitroglycerin (Nitrostat Sl) 0.4 mg NOW STAT SL Last administered on 14:23; Start 03/11/17 at 14:12; Stop 03/11/17 at 14:16; Status DC Heparin Sodium (Porcine) (Heparin Inj) 5,000 units NOW STAT IV Last administered on 03/11/17 14:23; Start 03/11/17 at 14:12; Stop 03/11/17 at 14:16 ; Status DC Morphine Sulfate 2 mg 2 mg ONCE ONCE IV PUSH Last administered on 03/11/17 14 :37; Start 03/11/17 at 14:30; Stop 03/11/17 at 14:31; Status DC Potassium Chloride 100 ml @ 50 mls/hr ONCE ONCE IV Last administered on 14:32; Start 03/11/17 at 14:30; Stop 03/11/17 at 16:29; Status DC Heparin Sodium/ Sodium Chloride (Heparin-NS/Pf Inj) 500 ml @ As Directed STK- MED ONCE .ROUTE ; Start 03/11/17 at 14:39; Stop 03/11/17 at 14:40; Status DC Bivalirudin 250 mg 250 mg STK-MED ONCE .ROUTE Last administered on 03/11/17 15 :03; Start 03/11/17 at 15:03; Stop 03/11/17 at 15:04; Status DC Sodium Chloride 250 ml @ As Directed STK-MED ONCE .ROUTE Last administered on 03/11/17 15:04; Start 03/11/17 at 15:04; Stop 03/11/17 at 15:05; Status DC Dopamine HCl/ Dextrose (DOPamine INJ PREMIX) 500 ml @ As Directed STK-MED ONCE .ROUTE ; Start 03/11/17 at 15:12; Stop 03/11/17 at 15:13; Status DC Fentanyl Citrate (fentaNYL INJ) 100 mcg STK-MED ONCE .ROUTE Last administered on 03/11/17 15:40; Start 03/11/17 at 15:40; Stop 03/11/17 at 15:41; Status DC Ticagrelor (Brilinta) 180 mg STK-MED ONCE PO Last administered on 03/11/17 15: 48; Start 03/11/17 at 15:43; Stop 03/11/17 at 15:44; Status DC Ondansetron HCl 4 mg 4 mg STK-MED ONCE .ROUTE Last administered on 03/11/17 15 :50; Start 03/11/17 at 15:50; Stop 03/11/17 at 15:51; Status DC Sodium Chloride (NS 1000 ml Inj) 1,000 ml @ 125 mls/hr Q8H IV Last administered on 03/11/17 16:17; Start 03/11/17 at 16:17; Stop 03/11/17 at 20:16 ; Status DC Acetaminophen (Tylenol) 325 mg Q4H PRN PO PAIN SCALE 1 TO 2 Last administered on 03/12/17 21:15; Start 03/11/17 at 16:30 Aspirin (Aspirin Chew) 81 mg DAILY PO Last administered on 03/13/17 08:45; Start 03/12/17 at 09:00 Ticagrelor (Brilinta) 180 mg NOW ONCE PO ; Start 03/11/17 at 16:30; Stop at 16:33; Status DC Ticagrelor 90 mg 90 mg BID PO Last administered on 03/13/17 20:49; Start 03/12 at 09:00 Bivalirudin/ Sodium Chloride (Angiomax Inj/NS Inj) 50 ml @ 0 mls/hr Q0M IV ; Start 03/11/17 at 16:17; Stop 03/11/17 at 20:16; Status DC Atropine Sulfate (Atropine Inj) 0.5 mg UNSCH PRN IV VAGAL REPONSE; Start at 16:30 Ondansetron HCl (Zofran Inj) 4 mg Q4H PRN IV NAUSEA; Start 03/11/17 at 16:30 Metoprolol Tartrate (Lopressor) 12.5 mg BID PO Last administered on 03/13/17 20:49; Start 03/11/17 at 21:00 Atorvastatin Calcium (Lipitor) 10 mg HS PO Last administered on 03/12/17 21:14 ; Start 03/11/17 at 21:00; Stop 03/13/17 at 05:15; Status DC Miscellaneous (Pill Splitter) 1 ea UNSCH PRN OTHER SEE LABEL COMMENTS; Start at 16:45 Diphenhydramine HCl (Benadryl) 25 mg HS PRN PO INSOMNIA Last administered on 23:59; Start 03/11/17 at 23:30; Stop 03/12/17 at 09:09; Status DC Diphenhydramine HCl (Benadryl) 25 mg UNSCH X1 PRN PO IF NEEDED TONIGHT FOR SLEEP; Start 03/11/17 at 23:30; Stop 03/12/17 at 01:00; Status DC Azithromycin (Zithromax) 500 mg DAILY PO Last administered on 03/13/17 08:45; Start 03/12/17 at 09:00 Albuterol Sulfate (Albuterol Neb) 1.25 mg Q4HR NEB PRN NEB SOB/WHEEZING; Start 03/12/17 at 08:45 Pantoprazole Sodium (Protonix) 20 mg DAILY PO Last administered on 03/13/17 08 :45; Start 03/12/17 at 09:00 Guaifenesin (Robitussin Liq) 200 mg Q4H PRN PO COUGH; Start 03/12/17 at 09:00 Diphenhydramine HCl (Benadryl) 50 mg HS PRN PO INSOMNIA Last administered on 20:49; Start 03/12/17 at 09:15 Furosemide (Lasix Inj) 40 mg BID@,18 IV PUSH Last administered on 03/13/17 08:45; Start 03/12/17 at 18:00; Stop 03/13/17 at 10:58; Status DC Furosemide (Lasix Inj) 40 mg NOW ONCE IV PUSH Last administered on 03/12/17 11:13; Start 03/12/17 at 11:15; Stop 03/12/17 at 11:16; Status DC Atorvastatin Calcium 40 mg 40 mg DAILY PO Last administered on 03/13/17 08:46 ; Start 03/13/17 at 09:00 Piperacillin Sod/ Tazobactam Sod 100 ml @ 200 mls/hr Q6H IV ; Start 03/13/17 at 06:00; Stop 03/13/17 at 08:15; Status DC Piperacillin Sod/ Tazobactam Sod 100 ml @ 200 mls/hr Q6H IV Last administered on 03/14/17 03:02; Start 03/13/17 at 08:00 Sodium Chloride (NS 1000 ml Inj) 1,000 ml @ 85 mls/hr [id number] IV Last administered on 03/13/17 23:32; Start 03/13/17 at 11:15 Potassium Chloride (KCl) 40 meq NOW ONCE PO Last administered on 03/13/17 11: 58; Start 03/13/17 at 11:15; Stop 03/13/17 at 11:16; Status DC Iohexol (OMNIPAQUE 350 INJ (Straightening Machine Operator)) 100 ml STK-MED ONCE OTHER ; Start at 12:00; Stop 03/13/17 at 14:24; Status DC Potassium Bicarb/ Potassium Chloride (K-Lyte Cl Eff) 25 meq DAILY NG ; Start at 09:00 A/P Assessment and Plan A/P - STEMI s/p cardiac catheterization with : 1. Successful PCI/LEW to proximal LAD in the setting of STEMI. 2. Elevated LVEDP. 3. Preserved systolic function with estimated ejection fraction of 50%. continue aspirin, Brilinta, BB and statin-no MILO-I due to renal insufficiency- cardiology following. -right middle lobe pneumonia started on broad spectrum IV antibiotics; will switch to po abx upon discharge. follow the blood cultures. -acute kidney injury; renal function remains fairly stable- hold lasix- continue IV fluid. -mild hypokalemia; will replace . -elevated LFT's- improved- asymptomatic- hepatitis panel pending- -hypertension; on metoprolol- will monitor and adjust the regimen as needed -dyslipidemia; on statin -GERD; started prilosec Discharge Planning dc home this afternoon if remains afebrile with negative blood cultures and cleared by cardiology. f/u; pcp and cardiology. see med list. d/w the patient and RN. time spent 32 min. Neva Andrade MD Mar 14, 2017 08:42
--- NOTE | 2017-03-14 08:43 | HHI.DCPOC ---
Discharge Care Plan Diagnosis: (1) STEMI (ST elevation myocardial infarction) Your Health Problems Are: Chest Pain Goals to Promote Your Health * To prevent worsening of your condition and complications * To maintain your health at the optimal level Directions to Meet Your Goals Take your medications as prescribed Follow your dietary instruction Follow activity as directed Keep your appointments as scheduled Take your immunizations and boosters as scheduled If your symptoms worsen call your PCP, if no PCP go to Urgent Care Center or Emergency Room Smoking is Dangerous to Your Health. Avoid second hand smoke Call the 24-hour hour crisis hotline for domestic abuse at Neva Andrade MD Mar 14, 2017 08:43
--- NOTE | 2017-03-14 08:43 | HHI.DS ---
Discharge Summary Admission Date Mar 11, 2017 at 16:32 Discharge Date: Mar 14, 2017 Admitting Diagnosis STEMI (1) STEMI (ST elevation myocardial infarction) ICD Code: I21.3 Diagnosis: Principal (2) Pneumonia ICD Code: J18.9 Diagnosis: Principal Procedures cardiac cath Brief History - From Admission patient is a 76 y/o male with history of hypertension, dyslipidemia, ex-smoker, who presented to ER with chest pain. he says that while he was working on his boat yesterday he started to have midsternal chest pain. the pain was localized to the midchest with no radiation. pain was moderate in intensity and lasted till he had heart catheterization yesterday. pain was associated with nausea and few episodes of emesis. he denies any sob or dizziness. he underwent cardiac catheterization , PIC and stenting yesterday. at the time of my evaluation he was resting comfortably with no distress. currently denies any chest pain but has occasional cough along with some wheezing. CBC/BMP: 03/12/17 0315 03/14/17 0512 Significant Findings Laboratory Tests Test 03/11/17 03/12/17 03/13/17 03/14/17 14:04 03:15 05:49 05:12 Neutrophils (%) (Auto) 71.1 % 79.4 % (16.0-70.0) (16.0-70.0) Monocytes (%) (Auto) 9.3 % (0.0-8.0) 12.1 % (0.0-8.0) Activated Partial 23.2 SEC Thromboplast Time (24.3-30.1) Bedside Potassium 3.2 MMOL/L (3.5-4.9) Bedside Chloride 110 MMOL/L (98-109) Bedside Glucose 135 MG/DL (60-95) Troponin I 0.06 NG/ML (0.02-0.05) White Blood Count 12.3 TH/MM3 (4.0-11.0) Hematocrit 38.6 % (39.0-51.0) Lymphocytes (%) (Auto) 8.2 % (9.0-44.0) Neutrophils # (Auto) 9.8 TH/MM3 (1.8-7.7) Monocytes # (Auto) 1.5 TH/MM3 (0-0.9) Chloride Level 108 MEQ/L (98-107) Blood Urea Nitrogen 27 MG/DL (7-18) 28 MG/DL (7-18) 25 MG/DL (7-18) Estimat Glomerular Filtration 60 ML/MIN (>89) 47 ML/MIN (>89) 49 ML/MIN (>89) Rate Random Glucose 145 MG/DL 117 MG/DL 110 MG/DL (74-106) (74-106) (74-106) Calcium Level 8.4 MG/DL 8.0 MG/DL (8.5-10.1) (8.5-10.1) Potassium Level 3.1 MEQ/L 3.1 MEQ/L (3.5-5.1) (3.5-5.1) Creatinine 1.45 MG/DL 1.42 MG/DL (0.60-1.30) (0.60-1.30) Aspartate Amino Transf 297 U/L (15-37) 147 U/L (15-37) (AST/SGOT) B-Type Natriuretic Peptide 555 PG/ML (0-100) Total Protein 6.2 GM/DL 5.9 GM/DL (6.4-8.2) (6.4-8.2) Albumin 2.8 GM/DL 2.4 GM/DL (3.4-5.0) (3.4-5.0) Imaging Last Impressions Chest X-Ray 03/12/17 0000 Signed Impressions: Service Date/Time: Sunday, March 12, 2017 13:52 - CONCLUSION: New consolidation at the right mid lung. Aris Parks MD PE at Discharge GENERAL: This is a well-nourished, well-developed patient, in no apparent distress. CARDIOVASCULAR: Regular rate and regular rhythm without murmurs, gallops, or rubs. RESPIRATORY: Clear to auscultation. Breath sounds equal bilaterally. No wheezes , rales, or rhonchi. GASTROINTESTINAL: Abdomen soft, non-tender, nondistended. Normal, active bowel sounds MUSCULOSKELETAL: Extremities without clubbing, cyanosis, or edema. NEURO: Alert & Oriented x4 to person, place, time, situation. Moves all ext x4 Hospital Course - STEMI s/p cardiac catheterization with : 1. Successful PCI/LEW to proximal LAD in the setting of STEMI. 2. Elevated LVEDP. 3. Preserved systolic function with estimated ejection fraction of 50%. continue aspirin, Brilinta, BB and statin-no MILO-I due to renal insufficiency- cardiology following. -right middle lobe pneumonia started on broad spectrum IV antibiotics; will switch to po abx upon discharge. follow the blood cultures. -acute kidney injury; renal function remains fairly stable- hold lasix- continue IV fluid. -mild hypokalemia; will replace . -elevated LFT's- improved- asymptomatic- hepatitis panel pending- -hypertension; on metoprolol- will monitor and adjust the regimen as needed -dyslipidemia; on statin -GERD; started prilosec Pt Condition on Discharge: Good Discharge Disposition: Discharge Home Discharge Time: > 30 minutes Discharge Instructions DIET: Follow Instructions for: Heart Healthy Diet Activities you can perform: Regular-No Restrictions Follow up Referrals: Cardiology PCP Follow-up New Medications: Amoxicillin-Clavulanate (Augmentin) 875-125 Mg Tab 1 TAB PO BID Infection Days 7 Ref 0 TAB Aspirin (Aspirin Low Strength) 81 Mg Chew 81 MG PO DAILY cad Days 30 Ref 0 EA Atorvastatin (Atorvastatin) 40 Mg Tab 40 MG PO DAILY cad Days 30 Ref 0 TAB Metoprolol Tartrate (Metoprolol Tartrate) 25 Mg Tab 12.5 MG PO BID cad Days 30 Ref 0 TAB Ticagrelor (Brilinta) 90 Mg Tab 90 MG PO BID cad Days 30 Ref 0 TAB Continued Medications: Diphenhydramine HCl (Benadryl Allergy) 25 Mg Tablet PO HS Insomnia Omeprazole Magnesium (Prilosec) 2.5 Mg Pow Discontinued Medications: Amlodipine (Amlodipine) 2.5 Mg Tab 2.5 MG PO DAILY Blood Pressure Management #30 Ref 0 TAB Aspirin (Aspirin) 81 Mg Chew 324 MG CHEW DAILY Ref 0 TAB Ezetimibe (Zetia) 10 Mg Tab 10 MG PO DAILY #30 Ref 0 TAB Hydrochlorothiazide (Hydrochlorothiazide) 12.5 Mg Cap 12.5 MG PO BID #60 Ref 0 CAP Simvastatin (Simvastatin) 40 Mg Tab 40 MG PO HS Cholesterol Management #30 Ref 0 TAB Neva Andrade MD Mar 14, 2017 08:43
[2017-03-14] MEDS ORDERED: POTASSIUM CHLORIDE 10 MEQ CONTROLLED RELEASE TAB PO ONE (08:45)
--- NOTE | 2017-03-14 08:46 | EKG ---
Date Performed: 03/12/2017 Time Performed: 05:09:38 PTAGE: 76 years EKG: Sinus rhythm Lateral T wave changes are nonspecific Low QRS voltages in limb leads Abnormal ECG PREVIOUS TRACING : 03/11/2017 16.25 DOCTOR: Carrie Abrams Interpretating Date/Time 03/14/2017 08:42:26
[2017-03-14] MEDS ORDERED: POTASSIUM CHLORIDE 25 MEQ EFFERVESCENT TAB NG SCH (09:00)
[2017-03-14] MEDS: ATORVASTATIN 40 MG TAB PO SCH (09:47)
[2017-03-14] MEDS: AZITHROMYCIN 250 MG TAB PO SCH (09:48)
[2017-03-14] MEDS: PANTOPRAZOLE SOD 20 MG DELAYED RELEASE TAB PO SCH (09:48)
[2017-03-14] MEDS: ASPIRIN 81 MG CHEW TAB PO SCH (09:48)
[2017-03-14] MEDS: TICAGRELOR 90 MG TAB PO SCH (09:49)
[2017-03-14] MEDS: METOPROLOL TARTRATE 25 MG TAB PO SCH (09:49)
--- NOTE | 2017-03-14 09:53 | PD.CARD.PN ---
Subjective Subjective Remarks no complaints no overnight events Objective Medications Current Medications Medications (Trade) Dose Ordered Sig/Brittney Route Start Time Stop Time Status Last Admin (Tylenol) 325 mg Q4H PRN PO 03/11/17 16:30 03/12/17 21:15 (Aspirin Chew) 81 mg DAILY PO 03/12/17 09:00 03/14/17 09:48 (Brilinta) 90 mg BID PO 03/12/17 09:00 03/14/17 09:49 (Atropine Inj) 0.5 mg UNSCH PRN IV 03/11/17 16:30 (Zofran Inj) 4 mg Q4H PRN IV 03/11/17 16:30 (Lopressor) 12.5 mg BID PO 03/11/17 21:00 03/14/17 09:49 (Pill Splitter) 1 ea UNSCH PRN OTHER 03/11/17 16:45 (Zithromax) 500 mg DAILY PO 03/12/17 09:00 03/14/17 09:48 (Protonix) 20 mg DAILY PO 03/12/17 09:00 03/14/17 09:48 (Robitussin Liq) 200 mg Q4H PRN PO 03/12/17 09:00 (Benadryl) 50 mg HS PRN PO 03/12/17 09:15 03/13/17 20:49 Atorvastatin Calcium 40 mg 40 mg DAILY PO 03/13/17 09:00 03/14/17 09:47 Piperacillin Sod/ Tazobactam Sod 100 ml @ 200 mls/hr Q6H IV 03/13/17 08:00 03/14/17 03:02 (NS 1000 ml Inj) 1,000 ml @ 85 mls/hr [id number] IV 03/13/17 11:15 03/13/17 23:32 (K-Lyte Cl Eff) 25 meq DAILY NG 03/14/17 09:00 03/14/17 09:47 Vital Signs / I&O Vital Signs Date Time Temp Pulse Resp B/P Pulse Ox O2 Delivery O2 Flow Rate FiO2 03/14/17 08:00 98.4 96 20 122/70 98 03/14/17 08:00 98 Room Air 03/14/17 07:00 67 03/14/17 06:00 77 03/14/17 05:00 88 03/14/17 04:00 66 03/14/17 03:15 99.7 77 18 125/72 95 03/14/17 03:15 95 Nasal Cannula 2.00 03/14/17 03:00 68 03/14/17 02:00 70 03/14/17 01:00 66 03/14/17 00:00 70 03/13/17 23:32 94 Nasal Cannula 2.00 03/13/17 23:30 99.5 75 18 129/68 90 03/13/17 23:30 90 Room Air 03/13/17 23:00 71 03/13/17 22:00 66 03/13/17 21:00 74 03/13/17 20:20 98.1 77 16 128/70 93 03/13/17 20:20 93 Room Air 03/13/17 20:00 66 03/13/17 19:00 76 03/13/17 18:07 71 03/13/17 17:09 69 03/13/17 16:19 67 03/13/17 15:22 68 03/13/17 15:22 98.3 75 18 117/55 95 03/13/17 14:07 74 03/13/17 13:42 69 03/13/17 12:07 81 03/13/17 11:15 64 03/13/17 11:15 98.2 64 18 112/69 94 03/13/17 10:04 67 I/O 03/13/17 03/13/17 03/13/17 03/14/17 03/14/17 03/14/17 07:00 15:00 23:00 07:00 15:00 23:00 Intake Total 240 ml 1257 ml 1460 ml Output Total 1525 ml 1425 ml 650 ml Balance -1285 ml -168 ml 810 ml Intake Oral 240 ml 570 ml 240 ml IV Total 687 ml 1220 ml Output Urine Total 1525 ml 1425 ml 650 ml # Bowel Movements 1 0 Physical Exam GENERAL: Well-nourished, well-developed patient. SKIN: Warm and dry. HEAD: Normocephalic. EYES: No scleral icterus. No injection or drainage. NECK: Supple, trachea midline. No JVD or lymphadenopathy. CARDIOVASCULAR: Regular rate and rhythm without murmurs, gallops, or rubs. RESPIRATORY: Breath sounds equal bilaterally. No accessory muscle use. + wheezing and rales GASTROINTESTINAL: Abdomen soft, non-tender, nondistended. EXTREMITIES: No cyanosis, or edema. NEUROLOGICAL: Awake, alert, and oriented x 3. Non-focal. Laboratory Laboratory Tests Test 03/14/17 05:12 Sodium Level 143 MEQ/L Potassium Level 3.1 MEQ/L Chloride Level 107 MEQ/L Carbon Dioxide Level 24.6 MEQ/L Anion Gap 11 MEQ/L Blood Urea Nitrogen 25 MG/DL Creatinine 1.42 MG/DL Estimat Glomerular Filtration 49 ML/MIN Rate Random Glucose 110 MG/DL Calcium Level 8.0 MG/DL Total Bilirubin 1.0 MG/DL Aspartate Amino Transf 147 U/L (AST/SGOT) Alanine Aminotransferase 56 U/L (ALT/SGPT) Alkaline Phosphatase 52 U/L Total Protein 5.9 GM/DL Albumin 2.4 GM/DL Assessment and Plan Problem List: (1) STEMI (ST elevation myocardial infarction) Assessment and Plan: Cont DAPT Replace K+ PO hydration Encourage ambulation Incentive spirometry Stable from CV to d/c home. He should have a repeat BMP on 03/16/2017 to be sent to me and follow with me next week. Problem Qualifiers (1) STEMI (ST elevation myocardial infarction): Qualified Code: I21.02 - ST elevation myocardial infarction involving left anterior descending (LAD) coronary artery Cuco Godinez MD Mar 14, 2017 09:53
[2017-03-14] MEDS: SODIUM CHLOR 0.9% 1000 ML INJ 1,000 ML IV SCH (10:47)
== END 2017-03-14 13:30 | disposition home or self-care (01) | DRG 246 ==
LOC: NEPC 14:01 → NEDA 16:32 → HCIN 16:49
PROVIDERS: ADMIT Internal Medicine; ATTEND Internal Medicine
PROC: 027034Z Dilation of Coronary Artery, One Artery with Drug-eluting Intraluminal Device, Percutaneous Approach (ICD-10-PCS; principal; 2017-03-11)
PROC: 4A023N7 Measurement of Cardiac Sampling and Pressure, Left Heart, Percutaneous Approach (ICD-10-PCS; 2017-03-11)
PROC: B2111ZZ Fluoroscopy of Multiple Coronary Arteries using Low Osmolar Contrast (ICD-10-PCS; 2017-03-11)
PROC: B2151ZZ Fluoroscopy of Left Heart using Low Osmolar Contrast (ICD-10-PCS; 2017-03-11)
DX: I21.02 ST elevation (STEMI) myocardial infarction involving left anterior descending coronary artery (principal); J18.9 Pneumonia, unspecified organism; N17.9 Acute kidney failure, unspecified; E11.22 Type 2 diabetes mellitus with diabetic chronic kidney disease; I25.119 Atherosclerotic heart disease of native coronary artery with unspecified angina pectoris; I12.9 Hypertensive chronic kidney disease with stage 1 through stage 4 chronic kidney disease, or unspecified chronic kidney disease; N18.9 Chronic kidney disease, unspecified; E78.00 Pure hypercholesterolemia, unspecified; M19.90 Unspecified osteoarthritis, unspecified site; E78.5 Hyperlipidemia, unspecified; Z87.891 Personal history of nicotine dependence; R06.2 Wheezing; K21.9 Gastro-esophageal reflux disease without esophagitis; E87.6 Hypokalemia
CPT/HCPCS: 71010; 80048; 80053; 80061; 80074; 82310; 82435; 82550; 82552; 82565; 82947; 83735; 83880; 84132; 84295; 84484; 84520; 85025; 85610; 85730; 87040; 92941; 93005; 93306; 93458; 96374; 96375; C1725; C1760; C1769; C1874; C1887; C1893; G0269; J0583; J1265; J1644; J1940; J2270; J2405; J2543; J3010; J3480; J7030; J7050; Q9967